=== PATIENT | female | born 1955 | race Caucasian/White ===

== ENCOUNTER 2020-03-09 14:19 | Inpatient (IN) | payer BC ==
[2020-03-09] MEDS ORDERED: methylPREDNISolone SOD SUCCI 125 MG/2 ML VIAL IV STA (14:49)
[2020-03-09] MEDS ORDERED: IPRATROPIUM 0.5 MG/2.5 ML NEBU INHALATION STA (14:49)
[2020-03-09] MEDS ORDERED: ALBUTEROL NEBULIZED 2.5 MG/3 ML INHALATION STA (14:49)
--- NOTE | 2020-03-09 15:08 | ED ---
General Adult HPI - General Chief complaint: Shortness of Breath Stated complaint: MICHAEL Time Seen by Provider: 03/09/20 14:30 Source: patient, RN notes reviewed, old records reviewed Mode of arrival: EMS Limitations: no limitations - History of Present Illness Initial comments: This is a 65-year-old female who presents emergency department with past medical history significant for COPD. Patient states she continues to smoke. Patient states the last week she isn't shortness of breath is getting progressively worse per patient states the last time she had this shortness of breath she had been admitted to the hospital. Patient denies any fevers or chills. Patient states she does have a cough but no sputum production. Patient denies any chest pain or palpitations. Patient denies lightheadedness or dizziness. Patient denies any headache patient denies numbness weakness. Patient denies any abdominal pain patient denies nausea vomiting diarrhea. - Related Data Allergies Allergy/AdvReac Type Severity Reaction Status Date / Time lamotrigine [From Lamictal] Allergy Unknown Verified 03/09/20 14:30 sulfamethoxazole Allergy Unknown Verified 03/09/20 14:30 [From Bactrim] trimethoprim [From Bactrim] Allergy Unknown Verified 03/09/20 14:30 Review of Systems ROS Statement: Those systems with pertinent positive or pertinent negative responses have been documented in the HPI. ROS Other: All systems not noted in ROS Statement are negative. Past Medical History Past Medical History: COPD, Hypertension History of Any Multi-Drug Resistant Organisms: None Reported Past Surgical History: Back Surgery, Orthopedic Surgery Past Psychological History: Depression Smoking Status: Current every day smoker Past Alcohol Use History: None Reported Past Drug Use History: None Reported General Exam - General Exam Comments Initial Comments: GENERAL: Patient is well-developed and well-nourished. Patient is nontoxic and well- hydrated and is in mild distress. ENT: Neck is soft and supple. No significant lymphadenopathy is noted. Oropharynx is clear. Moist mucous membranes. Neck has full range of motion without eliciting any pain. EYES: The sclera were anicteric and conjunctiva were pink and moist. Extraocular movements were intact and pupils were equal round and reactive to light. Eyelids were unremarkable. PULMONARY: Patient has poor air exchange with expiratory wheezing. CARDIOVASCULAR: There is a regular rate and rhythm without any murmurs gallops or rubs. ABDOMEN: Soft and nontender with normal bowel sounds. SKIN: Skin is clear with no lesions or rashes and otherwise unremarkable. NEUROLOGIC: Patient is alert and oriented x3. Cranial nerves II through XII are grossly intact. Motor and sensory are also intact. Normal speech, volume and content. Symmetrical smile. MUSCULOSKELETAL: Normal extremities with adequate strength and full range of motion. LYMPHATICS: No significant lymphadenopathy is noted PSYCHIATRIC: Normal psychiatric evaluation. Limitations: no limitations Course Vital Signs 03/09/20 03/09/20 03/09/20 14:31 15:29 15:47 Temperature 98.7 F Pulse Rate 102 H 102 H 100 Respiratory 20 Rate Blood Pressure 140/79 O2 Sat by Pulse 94 L Oximetry 03/09/20 03/09/20 03/09/20 16:17 16:30 16:35 Temperature Pulse Rate 109 H Respiratory 18 Rate Blood Pressure 111/74 O2 Sat by Pulse 93 L 88 L 93 L Oximetry Medical Decision Making - Medical Decision Making EKG shows normal sinus rhythm at 90 bpm ID interval 228 QRS 76 QT interval 374 QTC is 477. Patient's EKG shows no ST segment elevation or depression. Patient should multiple breathing treatments in the emergency department as well as steroids. Chest x-ray shows no acute abnormality. I taken reevaluate the patient after the breathing treatment she continued to be moving poor air flow. She stated she felt a little better. Patient was taken from the bed and went on a little walk however she became very short of breath he sat it down to 88% and felt dizzy. I spoke with Dr. Schroeder he agreed to admit the patient admitted the patient I wrote admitting orders I continued albuterol and steroids on the floor. - Lab Data Result diagrams: 03/09/20 15:24 03/09/20 15:24 Lab Results 03/09/20 03/09/20 03/09/20 Range/Units 15:24 15:24 15:24 WBC 6.2 (3.8-10.6) k/uL RBC 3.60 L (3.80-5.40) m/uL Hgb 10.6 L (11.4-16.0) gm/dL Hct 31.7 L (34.0-46.0) % MCV 87.9 (80.0-100.0) fL MCH 29.4 (25.0-35.0) pg MCHC 33.4 (31.0-37.0) g/dL RDW 14.9 (11.5-15.5) % Plt Count 272 (150-450) k/uL MPV 8.3 Neutrophils % 61 % Lymphocytes % 24 % Monocytes % 11 % Eosinophils % 1 % Basophils % 1 % Neutrophils # 3.8 (1.3-7.7) k/uL Lymphocytes # 1.5 (1.0-4.8) k/uL Monocytes # 0.7 (0-1.0) k/uL Eosinophils # 0.0 (0-0.7) k/uL Basophils # 0.1 (0-0.2) k/uL Hypochromasia Slight Poikilocytosis Slight PT 10.5 (9.0-12.0) sec INR 1.0 (<1.2) APTT 22.8 (22.0-30.0) sec Sodium 140 (137-145) mmol/L Potassium 3.4 L (3.5-5.1) mmol/L Chloride 104 (98-107) mmol/L Carbon Dioxide 33 H (22-30) mmol/L Anion Gap 3 mmol/L BUN 15 (7-17) mg/dL Creatinine 0.64 (0.52-1.04) mg/dL Est GFR (CKD-EPI)AfAm >90 (>60 ml/min/1.73 sqM) Est GFR (CKD-EPI)NonAf >90 (>60 ml/min/1.73 sqM) Glucose 103 H (74-99) mg/dL Plasma Lactic Acid Kaleb (0.7-2.0) mmol/L Calcium 8.5 (8.4-10.2) mg/dL Magnesium 1.5 L (1.6-2.3) mg/dL Total Bilirubin 0.4 (0.2-1.3) mg/dL AST 23 (14-36) U/L ALT 14 (4-34) U/L Alkaline Phosphatase 72 (38-126) U/L Troponin I (0.000-0.034) ng/mL Total Protein 6.1 L (6.3-8.2) g/dL Albumin 3.3 L (3.5-5.0) g/dL 03/09/20 03/09/20 Range/Units 15:24 15:24 WBC (3.8-10.6) k/uL RBC (3.80-5.40) m/uL Hgb (11.4-16.0) gm/dL Hct (34.0-46.0) % MCV (80.0-100.0) fL MCH (25.0-35.0) pg MCHC (31.0-37.0) g/dL RDW (11.5-15.5) % Plt Count (150-450) k/uL MPV Neutrophils % % Lymphocytes % % Monocytes % % Eosinophils % % Basophils % % Neutrophils # (1.3-7.7) k/uL Lymphocytes # (1.0-4.8) k/uL Monocytes # (0-1.0) k/uL Eosinophils # (0-0.7) k/uL Basophils # (0-0.2) k/uL Hypochromasia Poikilocytosis PT (9.0-12.0) sec INR (<1.2) APTT (22.0-30.0) sec Sodium (137-145) mmol/L Potassium (3.5-5.1) mmol/L Chloride (98-107) mmol/L Carbon Dioxide (22-30) mmol/L Anion Gap mmol/L BUN (7-17) mg/dL Creatinine (0.52-1.04) mg/dL Est GFR (CKD-EPI)AfAm (>60 ml/min/1.73 sqM) Est GFR (CKD-EPI)NonAf (>60 ml/min/1.73 sqM) Glucose (74-99) mg/dL Plasma Lactic Acid Kaleb 1.0 (0.7-2.0) mmol/L Calcium (8.4-10.2) mg/dL Magnesium (1.6-2.3) mg/dL Total Bilirubin (0.2-1.3) mg/dL AST (14-36) U/L ALT (4-34) U/L Alkaline Phosphatase (38-126) U/L Troponin I <0.012 (0.000-0.034) ng/mL Total Protein (6.3-8.2) g/dL Albumin (3.5-5.0) g/dL Critical Care Time Critical Care Time: Yes Total Critical Care Time: 35 Disposition Clinical Impression: Acute exacerbation of chronic obstructive pulmonary disease Disposition: ADMITTED IP TO THIS HOSP Referrals: None,Stated [Primary Care Provider] - 1-2 days Time of Disposition: 17:03
[2020-03-09 15:36] LABS: Basophils # (A) 0.1 k/uL (0-0.2); Basophils % (A) 1 %; Eosinophils % (A) 1 %; HCT 31.7 % (34.0-46.0); HGB 10.6 gm/dL (11.4-16.0); Hypochromasia Slight; Lymphocytes # (A) 1.5 k/uL (1.0-4.8); Lymphocytes % (A) 24 %; MCH 29.4 pg (25.0-35.0); MCHC 33.4 g/dL (31.0-37.0); MCV 87.9 fL (80.0-100.0); Mean Platelet Volume 8.3; Monocytes # (A) 0.7 k/uL (0-1.0); Monocytes % (A) 11 %; Neutrophils # (A) 3.8 k/uL (1.3-7.7); Neutrophils % (A) 61 %; Platelet Count 272 k/uL (150-450); Poikilocytosis Slight; RDW 14.9 % (11.5-15.5); WBC 6.2 k/uL (3.8-10.6)
[2020-03-09 15:45] LABS: Partial Thromboplastin Time 22.8 sec (22.0-30.0); Prothrombin Time 10.5 sec (9.0-12.0)
[2020-03-09 15:50] LABS: ALT 14 U/L (4-34); AST 23 U/L (14-36); African American GFR (CKD) >90 (>60 ml/min/1.73 sqM); Albumin 3.3 g/dL (3.5-5.0); Alkaline Phosphatase 72 U/L (38-126); Anion Gap 3 mmol/L; Blood Urea Nitrogen 15 mg/dL (7-17); Calcium 8.5 mg/dL (8.4-10.2); Carbon Dioxide 33 mmol/L (22-30); Chloride 104 mmol/L (98-107); Glucose 103 mg/dL (74-99); Magnesium 1.5 mg/dL (1.6-2.3); Non-African American GFR(CKD) >90 (>60 ml/min/1.73 sqM); Potassium 3.4 mmol/L (3.5-5.1); Sodium 140 mmol/L (137-145); Total Bilirubin 0.4 mg/dL (0.2-1.3); Total Protein 6.1 g/dL (6.3-8.2)
[2020-03-09] MEDS ORDERED: KETOROLAC 15 MG/ML 1 ML VIAL IVP STA (15:56)
--- NOTE | 2020-03-09 16:02 | XR ---
EXAMINATION TYPE: XR chest 2V DATE OF EXAM: 03/09/2020 COMPARISON: NONE HISTORY: Chest pain, shortness of breath, and cough. TECHNIQUE: Frontal and lateral views of the chest are obtained. FINDINGS: Background Chronic emphysematous and suspected pulmonary fibrotic changes. There is no antonio picious focal air space opacity, pleural effusion, or pneumothorax seen. The cardiac silhouette size is within normal limits. Anterior fusion plate and a cervical thoracic junction is present. Linear 2 .0 cm density posterior to the heart is confirmed on 2 views. IMPRESSION: Chronic changes without acute pulmonary process. Possible 2.0 cm ingested metallic forei gn body in the distal esophagus, correlate clinically.
[2020-03-09] MEDS ORDERED: IPRATROPIUM-ALBUTEROL 3 ML NEB INHALATION PRN (17:04)
[2020-03-09] MEDS ORDERED: NALOXONE 0.4 MG/ML 1 ML VIAL IV PRN (17:24)
[2020-03-09] MEDS ORDERED: POTASSIUM CHLORIDE ER 20 MEQ TAB.ER PO STA (17:26)
--- NOTE | 2020-03-09 17:36 | P.HPIM ---
History of Present Illness H&P Date: 03/09/20 Chief Complaint: sob 65-year-old female who presents to the emergency department with worsening shortness of breath, cough as well as pleuritic chest pain and upper back pain. Cough is productive of brownish phlegm. No hemoptysis. Patient has history of COPD and she continues to smoke. No palpitations. No fevers or chills. No sick contacts. Patient also denies lightheadedness or dizziness. Patient denies any headache patient denies numbness weakness. Patient denies any abdominal pain, nausea vomiting diarrhea. In the emergency department evaluation revealed tachycardia with heart rate of 110, respiratory rate 30, oxygen saturation 88% on room air. Blood pressure was okay. She wasn't febrile. Labs revealed slight hypokalemia and hypomagnesemia otherwise unremarkable. EKG showed normal sinus rhythm. Chest x-ray showed no acute lung disease, 2 cm metallic foreign-body in the lower esophagus. Review of Systems Complete review of system performed, pertinent positives per HPI, otherwise negative Past Medical History Past Medical History: COPD, Hypertension History of Any Multi-Drug Resistant Organisms: None Reported Past Surgical History: Back Surgery, Orthopedic Surgery Past Psychological History: Depression Smoking Status: Current every day smoker Past Alcohol Use History: None Reported Past Drug Use History: None Reported Medications and Allergies Allergies Allergy/AdvReac Type Severity Reaction Status Date / Time lamotrigine [From Lamictal] Allergy Unknown Verified 03/09/20 14:30 sulfamethoxazole Allergy Unknown Verified 03/09/20 14:30 [From Bactrim] trimethoprim [From Bactrim] Allergy Unknown Verified 03/09/20 14:30 Physical Exam Vitals: Vital Signs Temp Pulse Resp BP Pulse Ox 03/09/20 16:35 93 L 03/09/20 16:30 88 L 03/09/20 16:17 109 H 18 111/74 93 L 03/09/20 15:47 100 03/09/20 15:29 102 H 03/09/20 14:31 98.7 F 102 H 20 140/79 94 L Intake and Output 03/09/20 03/09/20 03/09/20 06:59 14:59 22:59 Other: Weight 63.503 kg Constitutional: Mild to moderate respiratory distress, mild accessory muscle use. Eyes:Anicteric sclerae, moist conjunctiva, no lid-lag, PERRLA, ENMT: Oropharynx clear, no erythema, exudates Neck: Supple, FROM, no masses, or JVD, No carotid bruits, No thyromegaly Lungs: Bilateral diffuse wheezing and rhonchi, diminished breath sounds bilaterally. Cardiovascular: Tachycardic, regular, normal S1 and S2. No murmurs, gallops, or rubs, No peripheral edema Abdominal: Soft, Nontender, no guarding, rebound or rigidity, Normoactive bowel sounds, No hepatomegaly, No splenomegaly, No palpable mass Skin: Normal temperature, tone, texture, turgor, no induration, No subcutaneous nodules, No rash, lesions, No ulcers Extremities: No digital cyanosis, No clubbing, Pedal pulses intact and symmetrical, Radial pulses intact and symmetrical, No calf tenderness Psychiatric: Alert and oriented to person, place and time, appropriate affect, intact judgement Neuro: Muscles Strength 5/5 in all 4 extremities, Sensation to light touch grossly present throughout, Cranial nerves II-XII grossly intact, no focal sensory deficits Results CBC & Chem 7: 03/09/20 15:24 03/09/20 15:24 Labs: Abnormal Lab Results - Last 24 Hours (Table) 03/09/20 03/09/20 Range/Units 15:24 15:24 RBC 3.60 L (3.80-5.40) m/uL Hgb 10.6 L (11.4-16.0) gm/dL Hct 31.7 L (34.0-46.0) % Potassium 3.4 L (3.5-5.1) mmol/L Carbon Dioxide 33 H (22-30) mmol/L Glucose 103 H (74-99) mg/dL Magnesium 1.5 L (1.6-2.3) mg/dL Total Protein 6.1 L (6.3-8.2) g/dL Albumin 3.3 L (3.5-5.0) g/dL Assessment and Plan Plan: Acute hypoxic respiratory failure/acute exacerbation of COPD O2 to keep sats above 92% IV steroids DuoNeb's Doxycycline Check pro calcitonin Lower esophageal foreign body found on CXR Consult GI Pleuritic chest pain [place] when necessary Hypokalemia and hypomagnesemia Replace, follow in a.m. Smoking Advised to quit Nicotine patch as needed Patient admitted to inpatient due to severity of her illness, anticipated length of stay more than 2 midnights.
[2020-03-09] MEDS: HYDROcodone/APAP 5-325MG 1 EACH TAB PO PRN ×2 (17:52→22:40)
[2020-03-09] MEDS: MAGNESIUM SULFATE-D5W PMX 1 GM in DEXTROSE/WATER 1 100ML.BAG IVPB SCH ×2 (17:53→21:34)
[2020-03-09] MEDS ORDERED: IPRATROPIUM-ALBUTEROL 3 ML NEB INHALATION SCH (20:00)
[2020-03-09] MEDS: methylPREDNISolone SOD SUCCI 125 MG/2 ML VIAL IV SCH (21:32)
[2020-03-09] MEDS: DOXYCYCLINE 100 MG CAP PO SCH (21:34)
[2020-03-10] MEDS: methylPREDNISolone SOD SUCCI 125 MG/2 ML VIAL IV SCH ×5 (01:52→23:31)
[2020-03-10 06:24] LABS: Basophils % (A) 0 %; Eosinophils % (A) 0 %; HCT 32.4 % (34.0-46.0); HGB 10.2 gm/dL (11.4-16.0); Hypochromasia Marked; Lymphocytes # (A) 0.7 k/uL (1.0-4.8); Lymphocytes % (A) 15 %; MCH 28.8 pg (25.0-35.0); MCHC 31.4 g/dL (31.0-37.0); MCV 91.8 fL (80.0-100.0); Mean Platelet Volume 8.8; Monocytes # (A) 0.2 k/uL (0-1.0); Monocytes % (A) 3 %; Neutrophils # (A) 3.9 k/uL (1.3-7.7); Neutrophils % (A) 80 %; Platelet Count 283 k/uL (150-450); Poikilocytosis Slight; RBC 3.53 m/uL (3.80-5.40); RDW 15.1 % (11.5-15.5); WBC 4.9 k/uL (3.8-10.6)
[2020-03-10] MEDS: HYDROcodone/APAP 5-325MG 1 EACH TAB PO PRN ×5 (07:33→23:29)
[2020-03-10] MEDS: DOXYCYCLINE 100 MG CAP PO SCH (07:35)
--- NOTE | 2020-03-10 08:47 | P.PN ---
Subjective Progress Note Date: 03/10/20 Principal diagnosis: sob Patient feeling only slightly better compared to when she came in. She continues to have pleuritic chest pain, shortness of breath and cough. No fevers and chills. Objective - Vital Signs Vital signs: Vital Signs Temp 97.8 F 03/10/20 08:00 Pulse 95 03/10/20 08:00 Resp 18 03/10/20 08:00 BP 147/67 03/10/20 08:00 Pulse Ox 90 L 03/10/20 08:00 Intake & Output 03/09/20 03/10/20 03/10/20 18:59 06:59 18:59 Weight 63.503 kg Other: # Bowel Movements 1 - Exam Constitutional: Mild to moderate respiratory distress, mild accessory muscle use. Eyes:Anicteric sclerae, moist conjunctiva, no lid-lag, PERRLA, ENMT: Oropharynx clear, no erythema, exudates Neck: Supple, FROM, no masses, or JVD, No carotid bruits, No thyromegaly Lungs: Bilateral diffuse wheezing and rhonchi, diminished breath sounds bilaterally. Cardiovascular: Tachycardic, regular, normal S1 and S2. No murmurs, gallops, or rubs, No peripheral edema Abdominal: Soft, Nontender, no guarding, rebound or rigidity, Normoactive bowel sounds, No hepatomegaly, No splenomegaly, No palpable mass Skin: Normal temperature, tone, texture, turgor, no induration, No subcutaneous nodules, No rash, lesions, No ulcers Extremities: No digital cyanosis, No clubbing, Pedal pulses intact and symmetrical, Radial pulses intact and symmetrical, No calf tenderness Psychiatric: Alert and oriented to person, place and time, appropriate affect, intact judgement Neuro: Muscles Strength 5/5 in all 4 extremities, Sensation to light touch grossly present throughout, Cranial nerves II-XII grossly intact, no focal sensory deficits - Labs CBC & Chem 7: 03/10/20 05:45 03/09/20 15:24 Labs: Abnormal Lab Results - Last 24 Hours (Table) 03/09/20 03/09/20 03/09/20 Range/Units 15:24 15:24 23:22 RBC 3.60 L (3.80-5.40) m/uL Hgb 10.6 L (11.4-16.0) gm/dL Hct 31.7 L (34.0-46.0) % Lymphocytes # (1.0-4.8) k/uL Potassium 3.4 L (3.5-5.1) mmol/L Carbon Dioxide 33 H (22-30) mmol/L Glucose 103 H (74-99) mg/dL Magnesium 1.5 L (1.6-2.3) mg/dL Total Protein 6.1 L (6.3-8.2) g/dL Albumin 3.3 L (3.5-5.0) g/dL Coronavirus (PCR) Detected A (Not Detectd) 03/10/20 Range/Units 05:45 RBC 3.53 L (3.80-5.40) m/uL Hgb 10.2 L (11.4-16.0) gm/dL Hct 32.4 L (34.0-46.0) % Lymphocytes # 0.7 L (1.0-4.8) k/uL Potassium (3.5-5.1) mmol/L Carbon Dioxide (22-30) mmol/L Glucose (74-99) mg/dL Magnesium (1.6-2.3) mg/dL Total Protein (6.3-8.2) g/dL Albumin (3.5-5.0) g/dL Coronavirus (PCR) (Not Detectd) Assessment and Plan Plan: Acute hypoxic respiratory failure/acute exacerbation of COPD/acute covid 19 pneumonia O2 to keep sats above 92% IV steroids DuoNeb's Consult pulmonary service Pro calcitonin negative, discontinue doxycycline Lower esophageal foreign body found on CXR Consult GI Pleuritic chest pain [place] when necessary Hypokalemia and hypomagnesemia Replaced Smoking Advised to quit Nicotine patch as needed Disposition: Likely home Anticipated discharge: 3-4 days
[2020-03-10] MEDS: ALBUTEROL HFA INHALER INHALATION SCH ×4 (08:57→19:41)
[2020-03-10] MEDS: TIOTROPIUM 2.5 MCG INHALER INHALATION SCH (08:58)
[2020-03-10 10:39] LABS: African American GFR (CKD) 111.6 (60.0-200.0); Albumin 3.9 g/dL (3.80-4.90); Albumin/Globulin Ratio 1.95 (1.60-3.17); Anion Gap 10.8 mmol/L (4.00-12.00); BUN/Creat Ratio 38.33 Ratio (12.00-20.00); Calcium 8.5 mg/dL (8.7-10.3); Carbon Dioxide 24.2 mmol/L (21.6-31.8); Magnesium 2.2 mg/dL (1.5-2.4); Non-African American GFR(CKD) 96.3 (60.0-200.0); Potassium 4.4 mmol/L (3.5-5.5); Total Bilirubin 0.3 mg/dL (0.3-1.2); Total Protein 5.9 g/dL (6.2-8.2)
--- NOTE | 2020-03-10 17:13 | P.CNPUL ---
History of Present Illness Consult date: 03/10/20 Requesting physician: Suman Gary Reason for consult: dyspnea, cough Chief complaint: Cough, weakness, shortness of breath, hypoxia, generalized malaise History of present illness: This 65-year-old white female patient with past medical history of COPD, current smoker, patient states she quit smoking 2 days ago, hypertension, depression, history of previous back surgery, who presents to the emergency department for evaluation of worsening dyspnea, fatigue, and cough, she states she has been having symptoms for one week, started with generalized malaise, fatigue, cough, she did have diarrhea, some resting production. She recently quit smoking about 2 days ago. She does not see lung doctor on a regular basis, she is only on albuterol for her COPD. she states she feels short of breath, still coughing, chest x-ray in the emergency room showed chronic changes without acute pulmonary process, possible 2.0 cm ingested metallic foreign body in the distal esophagus. She states she had a history of esophageal tear with the history of surgical intervention and placement of a clip and this was done at [facility] a while back. No history of EtOH. Lab data was reviewed joann wing white blood cell, 6.2, hemoglobin of 10.6, INR is 1.0, potassium 3.4, CO2 is 23, Darvocet electrolytes were within normal limits, BUN of 15 creatinine 0.64, lactic acid was 1, troponin was less than 0.012, pro calcitonin was negative at 0.03, coronavirus PCR was positive. Patient is afebrile, she is currently on 2 L of oxygen and pulse ox is between 90-93%, blood pressure stable, she is noted to be mildly short of breath with conversation, she feels warm to touch on physical examination, however no recorded elevated temperature. Review of Systems All systems: negative Constitutional: Reports malaise, Reports weakness, Denies chills, Denies fever Eyes: denies blurred vision, denies pain Ears, nose, mouth and throat: Denies headache, Denies sore throat Cardiovascular: Denies chest pain, Denies shortness of breath Respiratory: Reports cough with sputum, Reports dyspnea, Denies cough Gastrointestinal: Denies abdominal pain, Denies diarrhea, Denies nausea, Denies vomiting Genitourinary: Denies dysuria, Denies hematuria Musculoskeletal: Denies myalgias Integumentary: Denies pruritus, Denies rash Neurological: Denies numbness, Denies weakness Psychiatric: Denies anxiety, Denies depression Endocrine: Denies fatigue, Denies weight change Past Medical History Past Medical History: COPD, Hypertension History of Any Multi-Drug Resistant Organisms: None Reported Past Surgical History: Back Surgery, Orthopedic Surgery Past Anesthesia/Blood Transfusion Reactions: No Reported Reaction Additional Past Anesthesia/Blood Transfusion Reaction / Comment(s): Pt has never had a transfusion Past Psychological History: Depression Smoking Status: Former smoker Past Alcohol Use History: None Reported Past Drug Use History: None Reported - Past Family History Father Family Medical History: No Reported History Medications and Allergies Home Medications Medication Instructions Recorded Confirmed Type Albuterol Sulfate [Proair Hfa] 1 - 2 puff INHALATION RT-Q4H PRN 03/09/20 03/09/20 History Celexa (Unknown Strength) 1 tab PO DAILY 03/09/20 03/09/20 History Metoprolol Tartrate [Lopressor] 50 mg PO BID 03/09/20 03/09/20 History Allergies Allergy/AdvReac Type Severity Reaction Status Date / Time lamotrigine [From Lamictal] Allergy Unknown Verified 03/09/20 17:39 sulfamethoxazole Allergy Unknown Verified 03/09/20 17:39 [From Bactrim] trimethoprim [From Bactrim] Allergy Unknown Verified 03/09/20 17:39 Physical Exam Vitals: Vital Signs Temp Pulse Pulse Resp BP BP Pulse Ox 03/10/20 16:06 97.7 F 98 134/64 93 L 03/10/20 14:08 98.4 F 102 H 18 138/74 91 L 03/10/20 08:00 97.8 F 95 18 147/67 90 L 03/10/20 07:44 16 03/10/20 06:34 92 16 142/83 98 03/10/20 03:22 18 94 L 03/10/20 01:07 116 H 18 188/92 94 L 03/09/20 22:40 107 H 18 127/71 94 L 03/09/20 20:00 97.9 F 104 H 18 134/68 97 03/09/20 19:33 104 H 03/09/20 19:25 104 H 03/09/20 17:50 99 20 120/72 99 Intake and Output 03/10/20 03/10/20 03/10/20 06:59 14:59 22:59 Other: # Bowel Movements 1 GENERAL EXAM: Alert, very pleasant, 65-year-old white female, 2 L of oxygen and the pulse ox 93%, appears to be mild short of breath with conversation but no acute distress noted comfortable in no apparent distress. HEAD: Normocephalic/atraumatic. EYES: Normal reaction of pupils, equal size. Conjunctiva pink, sclera white. NOSE: Clear with pink turbinates. THROAT: No erythema or exudates. NECK: No masses, no JVD, no thyroid enlargement, no adenopathy. CHEST: No chest wall deformity. Symmetrical expansion. LUNGS: Equal air entry with minimal basilar crackles CVS: Regular rate and rhythm, normal S1 and S2, no gallops, no murmurs, no rubs ABDOMEN: Soft, nontender. No hepatosplenomegaly, normal bowel sounds, no guarding or rigidity. EXTREMITIES: No clubbing, no edema, no cyanosis, 2+ pulses and upper and lower extremities. MUSCULOSKELETAL: Muscle strength and tone normal. SPINE: No scoliosis or deformity SKIN: No rashes CENTRAL NERVOUS SYSTEM: Alert and oriented -3. No focal deficits, tone is normal in all 4 extremities. PSYCHIATRIC: Alert and oriented -3. Appropriate affect. Intact judgment and insight. Results - Laboratory Findings CBC and BMP: 03/10/20 05:45 03/10/20 05:45 PT/INR, D-dimer PT 10.5 sec (9.0-12.0) 03/09/20 15:24 INR 1.0 (<1.2) 03/09/20 15:24 Abnormal lab findings: Abnormal Labs 03/09/20 03/09/20 03/09/20 15:24 15:24 23:22 RBC 3.60 L Hgb 10.6 L Hct 31.7 L Lymphocytes # Potassium 3.4 L Carbon Dioxide 33 H BUN/Creatinine Ratio Glucose 103 H Calcium Magnesium 1.5 L Total Protein 6.1 L Albumin 3.3 L Coronavirus (PCR) Detected A 03/10/20 03/10/20 05:45 05:45 RBC 3.53 L Hgb 10.2 L Hct 32.4 L Lymphocytes # 0.7 L Potassium Carbon Dioxide BUN/Creatinine Ratio 38.33 H Glucose 135 H Calcium 8.5 L Magnesium Total Protein 5.9 L Albumin Coronavirus (PCR) - Diagnostic Findings Chest x-ray: report reviewed, image reviewed Assessment and Plan Plan: Assessment: #1. Acute hypoxic respiratory failure related to acute COVID 19 infection. Chest x-ray showed a chronic emphysematous and suspected pulmonary fibrotic changes without acute pulmonary process, CTA chest is pending, her onset of symptoms was one week ago, with worsening cough, dyspnea, fatigue, generalized malaise, chest discomfort which is likely pleuritic and diarrhea #2. History of COPD not oxygen dependent at baseline #3. 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 Mild hypokalemia and hypomagnesemia #5. Hypertension #6. Lower esophageal foreign body seen on the chest x-ray on 2 different views, and the patient reports history of esophageal tear with placement of a clip at [facility] a while ago #7. Chronic back pain with history of surgery #8. Depression Plan: We'll start the patient on Remdesivir, we'll give 2 units of convalescent plasma, continue IV steroids, obtain CTA chest to investigate the lower esophageal foreign body, and also evaluate her pulmonary infiltrates and chronic changes in the lungs, continue steroids, continue vitamins, prophylactic dose of Lovenox, obtain a stat d-dimer, will continue to follow and make further recomm endations I performed a history & physical examination of the patient and discussed their management with my nurse practitioner, Silke Márquez. I reviewed the nurse practitioner's note and agree with the documented findings and plan of care. Lung sounds are positive for basilar crackles. The findings and the impression was discussed with the patient. I attest to the documentation by the nurse practitioner. Time with Patient: Greater than 30
--- NOTE | 2020-03-10 17:34 | CONS ---
CONSULTATION DATE OF DICTATION: 03/10/2020. REASON FOR CONSULTATION: Foreign body in the esophagus noted on chest x-ray. HISTORY OF PRESENT ILLNESS: The patient is a 65-year-old pleasant white female who came to the emergency room complaining of shortness of breath associated with cough and some pleuritic chest pain radiating to the upper back for the last 3-4 days' duration. She came to the emergency room and was tested positive for COVID-19 infection and presently being admitted to the hospital. She did have a chest x-ray done that showed a 2 cm metallic foreign body noted in the distal esophagus. On further questioning, patient states that she was admitted to [facility] about a month ago with hematemesis. She had an upper endoscopy done. She was told she had bleeding in the distal esophagus and underwent cautery. She believes she also had an Endoclip placed. Since then the patient has been doing fine. She did not have any further episodes of bleeding. However, she does complain of some discomfort in the lower sternal area and occasional dysphagia. She denies any melena. PAST MEDICAL HISTORY: Her past medical history is significant for hypertension, asthma, anxiety, depression. PAST SURGICAL HISTORY: Recent EGD one month ago, back surgery, and some kind of orthopedic surgery. SOCIAL HISTORY: Chronic smoker but no alcohol use. FAMILY HISTORY: Unremarkable. ALLERGIES: LAMICTAL, BACTRIM. MEDICATIONS AT HOME: Medications at home include Celexa, Lopressor and albuterol. REVIEW OF SYSTEMS: CARDIOPULMONARY: Some shortness of breath. Chest pain has resolved. NEUROLOGY: Unremarkable. PSYCHIATRY: Unremarkable. ENT/VISION: Unremarkable. CONSTITUTIONAL: No recent weight loss. No fever, chills, night sweats. HEMATOLOGY: Unremarkable. ENDOCRINE: Unremarkable. GI: As mentioned above. PHYSICAL EXAMINATION: She appears comfortable. No apparent distress. Vital signs are stable. Blood pressure is 142/83, pulse rate 92, temperature . HEENT examination unremarkable. Conjunctivae pink. Sclerae anicteric. Oral cavity no lesions. NECK: No JVD or lymph node enlargement. CHEST: Clear to auscultation. HEART: Regular rate and rhythm. ABDOMEN: Soft. Bowel sounds are positive. No organomegaly. EXTREMITIES: No pedal edema. NEUROLOGIC: Alert and oriented x3. No focal deficits. LABS/IMAGING: WBC 6.2, hemoglobin 10.6, platelets normal. Basic metabolic panel is within normal limits. AST, ALT, T-bilirubin, alkaline phosphatase are normal. Coronavirus PCR is positive. Chest x-ray showed chronic changes without any acute pulmonary process and a 2 cm metallic foreign body in the distal esophagus. IMPRESSION: 1. COVID-19 infection/COVID-19 pneumonia with exacerbation of chronic obstructive pulmonary disease, presently on IV steroids. 2. Esophageal foreign body noted on chest x-ray, most likely related to recent endoscopic intervention for upper GI bleed at [facility], for which she underwent cautery with Endoclip done. Procedure note is not available at the time of this dictation. 3. History of chronic obstructive pulmonary disease. RECOMMENDATIONS: 1. Obtain record of recent upper endoscopy done at [facility]. 2. No indication for EGD at the present time. 3. Continue with management of COVID-19 pneumonia. 4. Will follow with you closely. Thank you for this consultation. MMODL / IJN: [id number] /
[2020-03-10] MEDS ORDERED: REMDESIVIR 200 MG in SODIUM CHLORIDE 0.9% 250 ML IVPB ONE (18:00)
[2020-03-10] MEDS: ZINC SULFATE 220 MG CAP PO SCH (18:57)
[2020-03-10] MEDS: ENOXAPARIN 40 MG/0.4 ML SYRINGE SQ SCH (18:57)
--- NOTE | 2020-03-10 19:12 | CT ---
EXAMINATION TYPE: CT chest angio for PE DATE OF EXAM: 03/10/2020 COMPARISON: None HISTORY: SOB, +covid CT DLP: 251.1 mGycm Automated exposure control for dose reduction was used. CONTRAST: Performed with IV Contrast, patient injected with 65cc mL of Isovue 370. Images obtained from the thoracic inlet to the diaphragm with IV contrast and 3-D post processed imag es. There is minimal pulmonary emphysema. There is some mild peripheral patchy subpleural interstitial in filtrates. There is minimal subsegmental atelectasis at the lung bases. There is no pleural effusion. Heart size is normal. There is no pericardial effusion. There is mild hiatal hernia. There are no hilar masses. There is no mediastinal adenopathy. Thoracic aorta is atheromatous. There is no aneurysm or dissection. There is normal contrast opacification of the pulmonary arteries. There are no filling defects. There is some spurring in the thoracic spine. I see no bony destructive process. IMPRESSION: No evidence of pulmonary embolism. Mild peripheral patchy pulmonary interstitial infiltrates. No susp icious pulmonary mass. Mild atelectasis at the lung bases.
[2020-03-10] MEDS: CHOLECALCIFEROL 400 UNIT TAB PO SCH (20:30)
[2020-03-10] MEDS: ASCORBIC ACID 500 MG TAB PO SCH (20:30)
[2020-03-11] MEDS: HYDROcodone/APAP 5-325MG 1 EACH TAB PO PRN ×5 (02:52→19:40)
[2020-03-11] MEDS: methylPREDNISolone SOD SUCCI 125 MG/2 ML VIAL IV SCH ×3 (05:51→18:45)
[2020-03-11] MEDS: CHOLECALCIFEROL 400 UNIT TAB PO SCH (08:54)
[2020-03-11] MEDS: ENOXAPARIN 40 MG/0.4 ML SYRINGE SQ SCH (08:54)
[2020-03-11] MEDS: ZINC SULFATE 220 MG CAP PO SCH (08:54)
[2020-03-11] MEDS: ASCORBIC ACID 500 MG TAB PO SCH ×2 (08:54→19:41)
[2020-03-11] MEDS: TIOTROPIUM 2.5 MCG INHALER INHALATION SCH (09:01)
[2020-03-11] MEDS: ALBUTEROL HFA INHALER INHALATION SCH ×4 (09:01→19:21)
--- NOTE | 2020-03-11 10:55 | P.PN ---
Subjective Progress Note Date: 03/11/20 Principal diagnosis: sob Patient reported feeling the same today despite looking much better to me this morning. Still having cough and shortness of breath. No fevers. Objective - Vital Signs Vital signs: Vital Signs Temp 97.4 F L 03/11/20 04:53 Pulse 89 03/11/20 04:53 Resp 18 03/11/20 04:53 BP 147/84 03/11/20 04:53 Pulse Ox 100 03/11/20 04:53 Intake & Output 03/10/20 03/11/20 03/11/20 18:59 06:59 18:59 Intake Total 1149 Balance 1149 Intake: Intake, IV Titration 250 Amount Remdesivir 200 mg In 250 Sodium Chloride 0.9% 250 ml @ 250 mls/hr IVPB ONCE ONE Rx#:[id number] Oral 500 Blood Product 399 Ffp Pher Conval Covid19 199 Acda 3 Unit [id number] Other: # Voids 2 # Bowel Movements 1 0 - Exam Constitutional: Mild to moderate respiratory distress, mild accessory muscle use. Eyes:Anicteric sclerae, moist conjunctiva, no lid-lag, PERRLA, ENMT: Oropharynx clear, no erythema, exudates Neck: Supple, FROM, no masses, or JVD, No carotid bruits, No thyromegaly Lungs: Improving air exchange and less wheezing compared to prior exam. Cardiovascular: Tachycardic, regular, normal S1 and S2. No murmurs, gallops, or rubs, No peripheral edema Abdominal: Soft, Nontender, no guarding, rebound or rigidity, Normoactive bowel sounds, No hepatomegaly, No splenomegaly, No palpable mass Skin: Normal temperature, tone, texture, turgor, no induration, No subcutaneous nodules, No rash, lesions, No ulcers Extremities: No digital cyanosis, No clubbing, Pedal pulses intact and symmetrical, Radial pulses intact and symmetrical, No calf tenderness Psychiatric: Alert and oriented to person, place and time, appropriate affect, intact judgement Neuro: Muscles Strength 5/5 in all 4 extremities, Sensation to light touch grossly present throughout, Cranial nerves II-XII grossly intact, no focal sensory deficits - Labs CBC & Chem 7: 03/10/20 05:45 03/10/20 05:45 Labs: Abnormal Lab Results - Last 24 Hours (Table) 03/10/20 03/11/20 Range/Units 17:23 05:48 D-Dimer 1.15 H 0.91 H (<0.60) mg/L FEU Microbiology - Last 24 Hours (Table) 03/09/20 15:24 Blood Culture - Preliminary Blood No Growth after 24 hours Assessment and Plan Plan: Acute hypoxic respiratory failure/acute exacerbation of COPD/acute covid 19 pneumonia O2 to keep sats above 92% IV steroids DuoNeb's Pulmonary service added remdisivir and 2 doses of convalescent plasma. Pro calcitonin negative Lower esophageal foreign body found on CXR Patient reported having an esophageal tear treated with clipping at [facility] about a month ago. Obtain records from [facility], DISCUSSED WITH SEWING TRIMMER. [facility] Pleuritic chest pain [place] when necessary Hypokalemia and hypomagnesemia Replaced Smoking Advised to quit Nicotine patch as needed Disposition: Likely home Anticipated discharge: 2-3 days
--- NOTE | 2020-03-11 12:59 | P.PN ---
Subjective Progress Note Date: 03/11/20 Principal diagnosis: Cough, weakness, shortness of breath, hypoxic, and generalized malaise This 65-year-old white female patient with past medical history of COPD, current smoker, patient states she quit smoking 2 days ago, hypertension, depression, history of previous back surgery, who presents to the emergency department for evaluation of worsening dyspnea, fatigue, and cough, she states she has been having symptoms for one week, started with generalized malaise, fatigue, cough, she did have diarrhea, some resting production. She recently quit smoking about 2 days ago. She does not see lung doctor on a regular basis, she is only on albuterol for her COPD. she states she feels short of breath, still coughing, chest x-ray in the emergency room showed chronic changes without acute pulmonary process, possible 2.0 cm ingested metallic foreign body in the distal esophagus. She states she had a history of esophageal tear with the history of surgical intervention and placement of a clip and this was done at [facility] a while back. No history of EtOH. Lab data was reviewed showing white blood cell, 6.2, hemoglobin of 10.6, INR is 1.0, potassium 3.4, CO2 is 23, Darvocet electrolytes were within normal limits, BUN of 15 creatinine 0.64, lactic acid was 1, troponin was less than 0.012, pro calcitonin was negative at 0.03, coronavirus PCR was positive. Patient is afebrile, she is currently on 2 L of oxygen and pulse ox is between 90-93%, blood pressure stable, she is noted to be mildly short of breath with conversation, she feels warm to touch on physical examination, however no recorded elevated temperature. On 03/11/2020 patient seen in follow-up on medical floor, she states she feels better, and she looks clinically better on today's exam as well. She is on day 2 of Remdesivir treatment, she received 1 unit of Colace and plasma, the second one will not be available for about a week. She is currently 3 L of oxygen pulse ox of 94%, she's been afebrile, CTA chest was completed, showing no evidence of pulmonary embolism, and mild peripheral patchy pulmonary interstitial infiltrates, no suspicious pulmonary mass, mild atelectasis at the lung bases. There was no mention of form and body in the distal esophagus. His d-dimer is down to 0.91, she had no acute events overnight, no worsening dyspnea. Objective - Vital Signs Vital signs: Vital Signs Temp 97.8 F 03/11/20 11:00 Pulse 100 03/11/20 11:00 Resp 16 03/11/20 11:00 BP 153/83 03/11/20 11:00 Pulse Ox 94 L 03/11/20 11:00 Intake & Output 03/10/20 03/11/20 03/11/20 18:59 06:59 18:59 Intake Total 1149 Balance 1149 Intake: Intake, IV Titration 250 Amount Remdesivir 200 mg In 250 Sodium Chloride 0.9% 250 ml @ 250 mls/hr IVPB ONCE ONE Rx#:[id number] Oral 500 Blood Product 399 Ffp Pher Conval Covid19 199 Acda 3 Unit [id number] Other: # Voids 2 # Bowel Movements 1 0 - Exam GENERAL EXAM: Alert, very pleasant, 65-year-old white female, 2 L of oxygen and the pulse ox 94%, appears to be mild short of breath with conversation but no acute distress noted comfortable in no apparent distress. HEAD: Normocephalic/atraumatic. EYES: Normal reaction of pupils, equal size. Conjunctiva pink, sclera white. NOSE: Clear with pink turbinates. THROAT: No erythema or exudates. NECK: No masses, no JVD, no thyroid enlargement, no adenopathy. CHEST: No chest wall deformity. Symmetrical expansion. LUNGS: Equal air entry with minimal basilar crackles CVS: Regular rate and rhythm, normal S1 and S2, no gallops, no murmurs, no rubs ABDOMEN: Soft, nontender. No hepatosplenomegaly, normal bowel sounds, no guarding or rigidity. EXTREMITIES: No clubbing, no edema, no cyanosis, 2+ pulses and upper and lower extremities. MUSCULOSKELETAL: Muscle strength and tone normal. SPINE: No scoliosis or deformity SKIN: No rashes CENTRAL NERVOUS SYSTEM: Alert and oriented -3. No focal deficits, tone is normal in all 4 extremities. PSYCHIATRIC: Alert and oriented -3. Appropriate affect. Intact judgment and insight. - Labs CBC & Chem 7: 03/10/20 05:45 03/10/20 05:45 Labs: Abnormal Lab Results - Last 24 Hours (Table) 03/10/20 03/11/20 Range/Units 17:23 05:48 D-Dimer 1.15 H 0.91 H (<0.60) mg/L FEU Microbiology - Last 24 Hours (Table) 03/09/20 15:24 Blood Culture - Preliminary Blood No Growth after 24 hours Assessment and Plan Plan: Assessment: #1. Acute hypoxic respiratory failure related to acute COVID 19 infection. Chest x-ray showed a chronic emphysematous and suspected pulmonary fibrotic changes without acute pulmonary process, CTA chest is pending, her onset of symptoms was one week ago, with worsening cough, dyspnea, fatigue, generalized malaise, chest discomfort which is likely pleuritic and diarrhea. Patient was started on Remdesivir on 03/10/2020, and 1 unit of convalescent plasma was given on 03/11/2020 #2. History of COPD not oxygen dependent at baseline #3. 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 Mild hypokalemia and hypomagnesemia #5. Hypertension #6. Lower esophageal foreign body seen on the chest x-ray on 2 different views, and the patient reports history of esophageal tear with placement of a clip at [facility] a while ago #7. Chronic back pain with history of surgery #8. Depression Plan: Continue Remdesivir, patient did receive her first unit of convalescent plasma, will continue with steroids, CT chest has been reviewed, no evidence of pulmonary embolism, Monopril patchy pulmonary interstitial infiltrates, no pulmonary mass. Clinically patient is feeling better, breathing possibly, we'll continue to closely follow. I performed a history & physical examination of the patient and discussed their management with my nurse practitioner, Silke Márquez. I reviewed the nurse practitioner's note and agree with the documented findings and plan of care. Lung sounds are positive for basilar crackles. The findings and the impression was discussed with the patient. I attest to the documentation by the nurse practitioner. Time with Patient: Less than 30
--- NOTE | 2020-03-11 13:33 | P.PN ---
Subjective Progress Note Date: 03/11/20 Principal diagnosis: Foreign body in the esophagus noted on chest x-ray Shortness of 65-year-old pleasant female who came into the emergency room with complaints of shortness of breath associated with cough. She tested positive for Covid-19 infection and was admitted to the hospital. She had a chest x-ray that showed a 2 cm metallic foreign body noted in the distal esophagus. Upon further questioning the patient states within the past month she was hospitalized with hematemesis and underwent an upper endoscopy. The patient states she had bleeding in the esophagus which required cautery and Endo Clip. Today she is seen and examined lying in bed. She states her breathing has improved. She states she is not having any abdominal pain, no difficulty with swallowing, and tolerating a regular diet. She denies any nausea or vomiting, or hematemesis. The patient's nurse stated the patient has a long history of EtOH abuse and is living at a [facility] with rehabilitation. The patient denies any alcohol use, states she did have however have heavy alcohol use ap proximately 10 years ago. Objective - Vital Signs Vital signs: Vital Signs Temp 97.8 F 03/11/20 11:00 Pulse 100 03/11/20 11:00 Resp 16 03/11/20 11:00 BP 153/83 03/11/20 11:00 Pulse Ox 94 L 03/11/20 11:00 Intake & Output 03/10/20 03/11/20 03/11/20 18:59 06:59 18:59 Intake Total 1149 Balance 1149 Intake: Intake, IV Titration 250 Amount Remdesivir 200 mg In 250 Sodium Chloride 0.9% 250 ml @ 250 mls/hr IVPB ONCE ONE Rx#:[id number] Oral 500 Blood Product 399 Ffp Pher Conval Covid19 199 Acda 3 Unit [id number] Other: # Voids 2 # Bowel Movements 1 0 - Exam General appearance: The patient is alert, oriented, in no acute distress. HET: Head is normocephalic and atraumatic. Conjunctiva pink. Sclera anicteric. Neck: Supple without lymphadenopathy. Abdomen: Soft, nontender, nondistended with bowel sounds. No guarding or rigidity. Extremities: Normal skin color and turgor. No pedal edema Neurological: No focal deficits. Alert and oriented 3. - Labs CBC & Chem 7: 03/10/20 05:45 03/10/20 05:45 Labs: Abnormal Lab Results - Last 24 Hours (Table) 03/10/20 03/11/20 Range/Units 17:23 05:48 D-Dimer 1.15 H 0.91 H (<0.60) mg/L FEU Microbiology - Last 24 Hours (Table) 03/09/20 15:24 Blood Culture - Preliminary Blood No Growth after 24 hours Assessment and Plan (1) Abnormal CXR Narrative/Plan: Esophageal foreign body noted on chest x-ray, most likely related to recent endoscopic intervention for upper GI bleed which patient states was possibly at [facility] or [facility], for which she underwent cautery with Endo Clip. Procedure note is available at the time of this dictation. Current Visit: Yes Status: Acute Code(s): R93.89 - ABNORMAL FINDINGS ON DX IMAGING OF OTH BODY STRUCTURES SNOMED Code(s): 175013392 (2) COVID-19 Narrative/Plan: Covid 19 infection/Covid 19 pneumonia with exacerbation of chronic obstructive pulmonary disease, presently on IV steroids. Current Visit: Yes Status: Acute Code(s): U07.1 - COVID-19 SNOMED Code(s): 762551695 Plan: 1. Try to obtain record of recent upper endoscopy 2. No indication for EGD at the present time 3. Continue with management of cold with 19 pneumonia 4. We will be on standby. Dr. Luly Graf I agree with the dictator's note, documented as a scribe by Jacqui Tai.
[2020-03-11] MEDS: REMDESIVIR 100 MG in SODIUM CHLORIDE 0.9% 250 ML IVPB SCH (18:44)
[2020-03-12] MEDS: methylPREDNISolone SOD SUCCI 125 MG/2 ML VIAL IV SCH ×3 (00:10→12:18)
[2020-03-12] MEDS: HYDROcodone/APAP 5-325MG 1 EACH TAB PO PRN ×6 (00:13→23:27)
[2020-03-12] MEDS: ALBUTEROL HFA INHALER INHALATION SCH ×4 (07:56→20:45)
[2020-03-12] MEDS: TIOTROPIUM 2.5 MCG INHALER INHALATION SCH (07:56)
[2020-03-12] MEDS: ASCORBIC ACID 500 MG TAB PO SCH ×2 (09:33→18:58)
[2020-03-12] MEDS: ENOXAPARIN 40 MG/0.4 ML SYRINGE SQ SCH (09:33)
[2020-03-12] MEDS: ZINC SULFATE 220 MG CAP PO SCH (09:33)
[2020-03-12] MEDS: CHOLECALCIFEROL 400 UNIT TAB PO SCH (09:33)
--- NOTE | 2020-03-12 10:56 | P.PN ---
Subjective Progress Note Date: 03/12/20 Principal diagnosis: sob Patient is still having significant shortness of breath with ambulation. She is doing okay while at rest. She feels minimal improvement. No fevers or chills. Objective - Vital Signs Vital signs: Vital Signs Temp 97.4 F L 03/12/20 05:00 Pulse 87 03/12/20 05:00 Resp 16 03/12/20 05:00 BP 146/81 03/12/20 05:00 Pulse Ox 92 L 03/12/20 05:00 Intake & Output 03/11/20 03/12/20 03/12/20 18:59 06:59 18:59 Intake Total 250 Balance 250 Intake: Intake, IV Titration 250 Amount Remdesivir 100 mg In 250 Sodium Chloride 0.9% 250 ml @ 250 mls/hr IVPB DAILY@1800 ANGELA Rx#: [id number] Other: # Voids 0 # Bowel Movements 0 - Exam Constitutional: Mild to moderate respiratory distress, mild accessory muscle use. Eyes:Anicteric sclerae, moist conjunctiva, no lid-lag, PERRLA, ENMT: Oropharynx clear, no erythema, exudates Neck: Supple, FROM, no masses, or JVD, No carotid bruits, No thyromegaly Lungs: Improving air exchange and less wheezing compared to prior exam. Cardiovascular: Tachycardic, regular, normal S1 and S2. No murmurs, gallops, or rubs, No peripheral edema Abdominal: Soft, Nontender, no guarding, rebound or rigidity, Normoactive bowel sounds, No hepatomegaly, No splenomegaly, No palpable mass Skin: Normal temperature, tone, texture, turgor, no induration, No subcutaneous nodules, No rash, lesions, No ulcers Extremities: No digital cyanosis, No clubbing, Pedal pulses intact and symmetrical, Radial pulses intact and symmetrical, No calf tenderness Psychiatric: Alert and oriented to person, place and time, appropriate affect, i ntact judgement Neuro: Muscles Strength 5/5 in all 4 extremities, Sensation to light touch grossly present throughout, Cranial nerves II-XII grossly intact, no focal sensory deficits - Labs CBC & Chem 7: 03/10/20 05:45 03/10/20 05:45 Labs: Microbiology - Last 24 Hours (Table) 03/09/20 15:24 Blood Culture - Preliminary Blood No Growth after 48 hours Assessment and Plan Plan: Acute hypoxic respiratory failure/acute exacerbation of COPD/acute covid 19 pneumonia O2 to keep sats above 92% IV steroids DuoNeb's Continue remdisivir Received 1 dose of convalescent plasma. Pro calcitonin negative Lower esophageal foreign body found on CXR Patient reported having an esophageal tear treated with clipping at [facility] about a month ago. Obtain records from [facility], DISCUSSED WITH TANK BUILDER AND ERECTOR. Pleuritic chest pain [place] when necessary Hypokalemia and hypomagnesemia Replaced Smoking Advised to quit Nicotine patch as needed Disposition: Likely home Anticipated discharge: 2-3 days
--- NOTE | 2020-03-12 12:49 | P.PN ---
Subjective Progress Note Date: 03/12/20 Principal diagnosis: Cough, weakness, shortness of breath, hypoxic, and generalized malaise This 65-year-old white female patient with past medical history of COPD, current smoker, patient states she quit smoking 2 days ago, hypertension, depression, history of previous back surgery, who presents to the emergency department for evaluation of worsening dyspnea, fatigue, and cough, she states she has been having symptoms for one week, started with generalized malaise, fatigue, cough, she did have diarrhea, some resting production. She recently quit smoking about 2 days ago. She does not see lung doctor on a regular basis, she is only on albuterol for her COPD. she states she feels short of breath, still coughing, chest x-ray in the emergency room showed chronic changes without acute pulmonary process, possible 2.0 cm ingested metallic foreign body in the distal esophagus. She states she had a history of esophageal tear with the history of surgical intervention and placement of a clip and this was done at [facility] a while back. No history of EtOH. Lab data was reviewed showing white blood cell, 6.2, hemoglobin of 10.6, INR is 1.0, potassium 3.4, CO2 is 23, Darvocet electrolytes were within normal limits, BUN of 15 creatinine 0.64, lactic acid was 1, troponin was less than 0.012, pro calcitonin was negative at 0.03, coronavirus PCR was positive. Patient is afebrile, she is currently on 2 L of oxygen and pulse ox is between 90-93%, blood pressure stable, she is noted to be mildly short of breath with conversation, she feels warm to touch on physical examination, however no recorded elevated temperature. On 03/11/2020 patient seen in follow-up on medical floor, she states she feels better, and she looks clinically better on today's exam as well. She is on day 2 of Remdesivir treatment, she received 1 unit of Colace and plasma, the second one will not be available for about a week. She is currently 3 L of oxygen pulse ox of 94%, she's been afebrile, CTA chest was completed, showing no evidence of pulmonary embolism, and mild peripheral patchy pulmonary interstitial infiltrates, no suspicious pulmonary mass, mild atelectasis at the lung bases. There was no mention of form and body in the distal esophagus. His d-dimer is down to 0.91, she had no acute events overnight, no worsening dyspnea. On 08/10/2020 patient seen in follow-up on medical floor, she states she is feeling about the same, but denies any shortness of breath, no significant cough, no complaints of chest discomfort, she still requiring supplemental oxygen, currently at 3 L, pulse ox 92%, she's been afebrile, hemodynamically stable, this is day 3 of Remdesivir treatment, she also received 1 unit of convalescent plasma yesterday on 03/11/2020. No new chest x-ray today, lab data reviewed, d-dimer is improving, down to 0.91. Does not seem to be in any acute distress, does have exertional dyspnea, she has had no fever or chills. No nausea vomiting or diarrhea. Objective - Vital Signs Vital signs: Vital Signs Temp 97.5 F L 03/12/20 11:00 Pulse 97 03/12/20 11:00 Resp 20 03/12/20 11:00 BP 143/75 03/12/20 11:00 Pulse Ox 92 L 03/12/20 11:00 Intake & Output 03/11/20 03/12/20 03/12/20 18:59 06:59 18:59 Intake Total 250 Balance 250 Intake: Intake, IV Titration 250 Amount Remdesivir 100 mg In 250 Sodium Chloride 0.9% 250 ml @ 250 mls/hr IVPB DAILY@1800 [facility] Rx#: [id number] Other: # Voids 0 # Bowel Movements 0 - Exam GENERAL EXAM: Alert, very pleasant, 65-year-old white female, 3 L of oxygen and the pulse ox 92%, appears to be mild short of breath with conversation but no acute distress noted comfortable in no apparent distress. HEAD: Normocephalic/atraumatic. EYES: Normal reaction of pupils, equal size. Conjunctiva pink, sclera white. NOSE: Clear with pink turbinates. THROAT: No erythema or exudates. NECK: No masses, no JVD, no thyroid enlargement, no adenopathy. CHEST: No chest wall deformity. Symmetrical expansion. LUNGS: Equal air entry with minimal basilar crackles CVS: Regular rate and rhythm, normal S1 and S2, no gallops, no murmurs, no rubs ABDOMEN: Soft, nontender. No hepatosplenomegaly, normal bowel sounds, no gu arding or rigidity. EXTREMITIES: No clubbing, no edema, no cyanosis, 2+ pulses and upper and lower e xtremities. MUSCULOSKELETAL: Muscle strength and tone normal. SPINE: No scoliosis or deformity SKIN: No rashes CENTRAL NERVOUS SYSTEM: Alert and oriented -3. No focal deficits, tone is normal in all 4 extremities. PSYCHIATRIC: Alert and oriented -3. Appropriate affect. Intact judgment and insight. - Labs CBC & Chem 7: 03/10/20 05:45 03/10/20 05:45 Labs: Microbiology - Last 24 Hours (Table) 03/09/20 15:24 Blood Culture - Preliminary Blood No Growth after 48 hours Assessment and Plan Plan: Assessment: #1. Acute hypoxic respiratory failure related to acute COVID 19 infection. Chest x-ray showed a chronic emphysematous and suspected pulmonary fibrotic changes without acute pulmonary process, CTA chest is pending, her onset of symptoms was one week ago, with worsening cough, dyspnea, fatigue, generalized malaise, chest discomfort which is likely pleuritic and diarrhea. Patient was started on Remdesivir on 03/10/2020, and 1 unit of convalescent plasma was given on 03/11/2020 #2. History of COPD not oxygen dependent at baseline #3. 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 Mild hypokalemia and hypomagnesemia #5. Hypertension #6. Lower esophageal foreign body seen on the chest x-ray on 2 different views, and the patient reports history of esophageal tear with placement of a clip at [facility] a while ago #7. Chronic back pain with history of surgery #8. Depression Plan: Continue current medical treatment, patient is currently on Remdesivir, day 3 of treatment, she status post transfusion with 1 unit of convalescent immunoglobulin for COVID 19, continue the steroids, and prophylactic Lovenox, we'll continue to follow. I performed a history & physical examination of the patient and discussed their management with my nurse practitioner, Silke Márquez. I reviewed the nurse practitioner's note and agree with the documented findings and plan of care. Lung sounds are positive for basilar crackles. The findings and the impression was discussed with the patient. I attest to the documentation by the nurse practitioner. Time with Patient: Less than 30
[2020-03-12] MEDS: ALPRAZolam 0.25 MG TAB PO PRN (17:49)
[2020-03-12] MEDS: REMDESIVIR 100 MG in SODIUM CHLORIDE 0.9% 250 ML IVPB SCH (17:49)
[2020-03-12] MEDS: methylPREDNISolone SOD SUCCI 40 MG/ML 1 ML VIAL IV SCH ×2 (17:49→23:26)
[2020-03-13] MEDS: HYDROcodone/APAP 5-325MG 1 EACH TAB PO PRN ×4 (04:20→19:49)
[2020-03-13] MEDS: methylPREDNISolone SOD SUCCI 40 MG/ML 1 ML VIAL IV SCH ×3 (05:35→18:05)
[2020-03-13] MEDS: ENOXAPARIN 40 MG/0.4 ML SYRINGE SQ SCH (07:28)
[2020-03-13] MEDS: ASCORBIC ACID 500 MG TAB PO SCH ×2 (07:28→20:00)
[2020-03-13] MEDS: CHOLECALCIFEROL 400 UNIT TAB PO SCH (07:29)
[2020-03-13] MEDS: ZINC SULFATE 220 MG CAP PO SCH (07:29)
[2020-03-13] MEDS: TIOTROPIUM 2.5 MCG INHALER INHALATION SCH (07:46)
[2020-03-13] MEDS: ALBUTEROL HFA INHALER INHALATION SCH ×4 (07:46→20:36)
--- NOTE | 2020-03-13 12:08 | P.PN ---
Subjective Progress Note Date: 03/13/20 Principal diagnosis: Cough, weakness, shortness of breath, hypoxic, and generalized malaise This 65-year-old white female patient with past medical history of COPD, current smoker, patient states she quit smoking 2 days ago, hypertension, depression, history of previous back surgery, who presents to the emergency department for evaluation of worsening dyspnea, fatigue, and cough, she states she has been having symptoms for one week, started with generalized malaise, fatigue, cough, she did have diarrhea, some resting production. She recently quit smoking about 2 days ago. She does not see lung doctor on a regular basis, she is only on albuterol for her COPD. she states she feels short of breath, still coughing, chest x-ray in the emergency room showed chronic changes without acute pulmonary process, possible 2.0 cm ingested metallic foreign body in the distal esophagus. She states she had a history of esophageal tear with the history of surgical intervention and placement of a clip and this was done at [facility] a while back. No history of EtOH. Lab data was reviewed showing white blood cell, 6.2, hemoglobin of 10.6, INR is 1.0, potassium 3.4, CO2 is 23, Darvocet electrolytes were within normal limits, BUN of 15 creatinine 0.64, lactic acid was 1, troponin was less than 0.012, pro calcitonin was negative at 0.03, coronavirus PCR was positive. Patient is afebrile, she is currently on 2 L of oxygen and pulse ox is between 90-93%, blood pressure stable, she is noted to be mildly short of breath with conversation, she feels warm to touch on physical examination, however no recorded elevated temperature. On 03/11/2020 patient seen in follow-up on medical floor, she states she feels better, and she looks clinically better on today's exam as well. She is on day 2 of Remdesivir treatment, she received 1 unit of Colace and plasma, the second one will not be available for about a week. She is currently 3 L of oxygen pulse ox of 94%, she's been afebrile, CTA chest was completed, showing no evidence of pulmonary embolism, and mild peripheral patchy pulmonary interstitial infiltrates, no suspicious pulmonary mass, mild atelectasis at the lung bases. There was no mention of form and body in the distal esophagus. His d-dimer is down to 0.91, she had no acute events overnight, no worsening dyspnea. On 08/10/2020 patient seen in follow-up on medical floor, she states she is feeling about the same, but denies any shortness of breath, no significant cough, no complaints of chest discomfort, she still requiring supplemental oxygen, currently at 3 L, pulse ox 92%, she's been afebrile, hemodynamically stable, this is day 3 of Remdesivir treatment, she also received 1 unit of convalescent plasma yesterday on 03/11/2020. No new chest x-ray today, lab data reviewed, d-dimer is improving, down to 0.91. Does not seem to be in any acute distress, does have exertional dyspnea, she has had no fever or chills. No nausea vomiting or diarrhea. On 03/13/2020 patient seen in follow-up on medical floor. Today's date for of Remdesivir, she is status post 1 unit of convalescent plasma, continues on steroids, and vitamins continues on prophylactic dose of Lovenox, she reports feeling better, breathing easier, 3 L of oxygen pulse ox of 90%, hemodynamically stable, she is afebrile. Follow-up d-dimer came back improved and is down to 0.91 from previously 1.15. She said no acute events overnight. Remains on IV steroids 40 mg every 6 hours. Objective - Vital Signs Vital signs: Vital Signs Temp 97.8 F 03/13/20 11:00 Pulse 94 03/13/20 11:00 Resp 20 03/13/20 11:00 BP 157/80 03/13/20 11:00 Pulse Ox 94 L 03/13/20 11:00 Intake & Output 03/12/20 03/13/20 03/13/20 18:59 06:59 18:59 Intake Total 250 Balance 250 Intake: Intake, IV Titration 250 Amount Remdesivir 100 mg In 250 Sodium Chloride 0.9% 250 ml @ 250 mls/hr IVPB DAILY@1800 [facility] Rx#: [id number] Other: # Voids 4 4 # Bowel Movements 0 1 - Exam GENERAL EXAM: Alert, very pleasant, 65-year-old white female, 3 L of oxygen and the pulse ox 94%, appears to be mild short of breath with conversation but no acute distress noted comfortable in no apparent distress. HEAD: Normocephalic/atraumatic. EYES: Normal reaction of pupils, equal size. Conjunctiva pink, sclera white. NOSE: Clear with pink turbinates. THROAT: No erythema or exudates. NECK: No masses, no JVD, no thyroid enlargement, no adenopathy. CHEST: No chest wall deformity. Symmetrical expansion. LUNGS: Equal air entry with minimal basilar crackles CVS: Regular rate and rhythm, normal S1 and S2, no gallops, no murmurs, no rubs ABDOMEN: Soft, nontender. No hepatosplenomegaly, normal bowel sounds, no guarding or rigidity. EXTREMITIES: No clubbing, no edema, no cyanosis, 2+ pulses and upper and lower extremities. MUSCULOSKELETAL: Muscle strength and tone normal. SPINE: No scoliosis or deformity SKIN: No rashes CENTRAL NERVOUS SYSTEM: Alert and oriented -3. No focal deficits, tone is normal in all 4 extremities. PSYCHIATRIC: Alert and oriented -3. Appropriate affect. Intact judgment and insight. - Labs CBC & Chem 7: 03/10/20 05:45 03/10/20 05:45 Labs: Microbiology - Last 24 Hours (Table) 03/09/20 15:24 Blood Culture - Preliminary Blood No Growth after 72 hours Assessment and Plan Plan: Assessment: #1. Acute hypoxic respiratory failure related to acute COVID 19 infection. Chest x-ray showed a chronic emphysematous and suspected pulmonary fibrotic changes without acute pulmonary process, CTA chest is pending, her onset of symptoms was one week ago, with worsening cough, dyspnea, fatigue, generalized malaise, chest discomfort which is likely pleuritic and diarrhea. Patient was started on Remdesivir on 03/10/2020, and 1 unit of convalescent plasma was given on 03/11/2020 #2. History of COPD not oxygen dependent at baseline #3. 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 Mild hypokalemia and hypomagnesemia #5. Hypertension #6. Lower esophageal foreign body seen on the chest x-ray on 2 different views, and the patient reports history of esophageal tear with placement of a clip at [facility] a while ago #7. Chronic back pain with history of surgery #8. Depression Plan: We'll continue current medical treatment, continue IV steroids, patient is on day 4 for Remdesivir treatment, continue prophylactic dose Lovenox, we'll obtain a follow-up chest x-ray tomorrow, patient is feeling better, possible discharge tomorrow after her final dose of Remdesivir she continues to do well. I performed a history & physical examination of the patient and discussed their management with my nurse practitioner, Silke Márquez. I reviewed the nurse practitioner's note and agree with the documented findings and plan of care. Lung sounds are positive for basilar crackles. The findings and the impression was discussed with the patient. I attest to the documentation by the nurse practitioner. Time with Patient: Less than 30
[2020-03-13] MEDS: ALPRAZolam 0.25 MG TAB PO PRN (12:26)
--- NOTE | 2020-03-13 12:52 | P.PN ---
Subjective Progress Note Date: 03/13/20 Principal diagnosis: sob Patient continues to report not feeling better despite looking clinically better. She continues to have coughing and shortness of breath. No fevers or c hills. Objective - Vital Signs Vital signs: Vital Signs Temp 97.8 F 03/13/20 11:00 Pulse 94 03/13/20 11:00 Resp 20 03/13/20 11:00 BP 157/80 03/13/20 11:00 Pulse Ox 94 L 03/13/20 11:00 Intake & Output 03/12/20 03/13/20 03/13/20 18:59 06:59 18:59 Intake Total 250 Balance 250 Intake: Intake, IV Titration 250 Amount Remdesivir 100 mg In 250 Sodium Chloride 0.9% 250 ml @ 250 mls/hr IVPB DAILY@1800 [facility] Rx#: [id number] Other: # Voids 4 4 # Bowel Movements 0 1 - Exam Constitutional: Mild to moderate respiratory distress, mild accessory muscle use. Eyes:Anicteric sclerae, moist conjunctiva, no lid-lag, PERRLA, ENMT: Oropharynx clear, no erythema, exudates Neck: Supple, FROM, no masses, or JVD, No carotid bruits, No thyromegaly Lungs: Improving air exchange and less wheezing compared to prior exam. Cardiovascular: Tachycardic, regular, normal S1 and S2. No murmurs, gallops, or rubs, No peripheral edema Abdominal: Soft, Nontender, no guarding, rebound or rigidity, Normoactive bowel sounds, No hepatomegaly, No splenomegaly, No palpable mass Skin: Normal temperature, tone, texture, turgor, no induration, No subcutaneous nodules, No rash, lesions, No ulcers Extremities: No digital cyanosis, No clubbing, Pedal pulses intact and symmetrical, Radial pulses intact and symmetrical, No calf tenderness Psychiatric: Alert and oriented to person, place and time, appropriate affect, intact judgement Neuro: Muscles Strength 5/5 in all 4 extremities, Sensation to light touch gross ly present throughout, Cranial nerves II-XII grossly intact, no focal sensory deficits - Labs CBC & Chem 7: 03/10/20 05:45 03/10/20 05:45 Labs: Microbiology - Last 24 Hours (Table) 03/09/20 15:24 Blood Culture - Preliminary Blood No Growth after 72 hours Assessment and Plan Plan: Acute hypoxic respiratory failure/acute exacerbation of COPD/acute covid 19 pneumonia O2 to keep sats above 92% IV steroids DuoNeb's Continue remdisivir Received 1 dose of convalescent plasma. Pro calcitonin negative Lower esophageal foreign body found on CXR Patient reported having an esophageal tear treated with clipping at [facility] about a month ago. Records obtained from [facility]--the foreign body was a metal clipping of lower esophageal bleeding according to the records. Pleuritic chest pain [place] when necessary Hypokalemia and hypomagnesemia Replaced Smoking Advised to quit Nicotine patch as needed Disposition: Likely home Anticipated discharge: Tomorrow
[2020-03-13] MEDS: REMDESIVIR 100 MG in SODIUM CHLORIDE 0.9% 250 ML IVPB SCH (18:05)
[2020-03-14] MEDS: methylPREDNISolone SOD SUCCI 40 MG/ML 1 ML VIAL IV SCH ×4 (00:18→17:58)
[2020-03-14] MEDS: ALPRAZolam 0.25 MG TAB PO PRN ×2 (00:25→18:31)
[2020-03-14 07:16] LABS: HCT 36.3 % (34.0-46.0); HGB 11.2 gm/dL (11.4-16.0); Hypochromasia Moderate; MCHC 30.9 g/dL (31.0-37.0); MCV 90.6 fL (80.0-100.0); Mean Platelet Volume 8.4; Platelet Count 383 k/uL (150-450); Poikilocytosis Slight; RBC 4.01 m/uL (3.80-5.40); RDW 15.3 % (11.5-15.5)
--- NOTE | 2020-03-14 07:31 | XR ---
EXAMINATION TYPE: XR chest 1V portable DATE OF EXAM: 03/14/2020 COMPARISON: 03/09/2020 HISTORY: Shortness of breath TECHNIQUE: Single frontal view of the chest is obtained. FINDINGS: Postsurgical change overlying the cervical spine. No pneumothorax. Subsegmental changes at both lung bases. No overt failure. Heart size normal. IMPRESSION: 1. Mild prominence of the interstitium at the lung bases could been the basis of mild interstitial pn eumonitis patchy infiltrate correlate clinically.
[2020-03-14] MEDS: HYDROcodone/APAP 5-325MG 1 EACH TAB PO PRN ×4 (07:44→20:02)
[2020-03-14] MEDS: ASCORBIC ACID 500 MG TAB PO SCH ×2 (07:46→20:02)
[2020-03-14] MEDS: ENOXAPARIN 40 MG/0.4 ML SYRINGE SQ SCH (07:46)
[2020-03-14] MEDS: ZINC SULFATE 220 MG CAP PO SCH (07:46)
[2020-03-14] MEDS: CHOLECALCIFEROL 400 UNIT TAB PO SCH (07:50)
[2020-03-14] MEDS: TIOTROPIUM 2.5 MCG INHALER INHALATION SCH (08:07)
[2020-03-14] MEDS: ALBUTEROL HFA INHALER INHALATION SCH ×4 (08:07→19:34)
--- NOTE | 2020-03-14 09:35 | P.PN ---
Subjective Progress Note Date: 03/14/20 Principal diagnosis: sob Patient is currently doing well, she is finishing up remdisivir course. Patient still gets short of breath when she ambulates. Overall she is noticing only minimal improvement compared to admission. Objective - Vital Signs Vital signs: Vital Signs Temp 97.6 F 03/14/20 05:15 Pulse 86 03/14/20 05:15 Resp 18 03/14/20 05:15 BP 150/81 03/14/20 05:15 Pulse Ox 97 03/14/20 05:15 Intake & Output 03/13/20 03/14/20 03/14/20 18:59 06:59 18:59 Intake Total 370 Balance 370 Intake: Intake, IV Titration 250 Amount Remdesivir 100 mg In 250 Sodium Chloride 0.9% 250 ml @ 250 mls/hr IVPB DAILY@1800 [facility] Rx#: [id number] Oral 120 Other: # Voids 5 # Bowel Movements 1 - Exam Constitutional: Mild to moderate respiratory distress, mild accessory muscle use. Eyes:Anicteric sclerae, moist conjunctiva, no lid-lag, PERRLA, ENMT: Oropharynx clear, no erythema, exudates Neck: Supple, FROM, no masses, or JVD, No carotid bruits, No thyromegaly Lungs: Improving air exchange and less wheezing compared to prior exam. Cardiovascular: Tachycardic, regular, normal S1 and S2. No murmurs, gallops, or rubs, No peripheral edema Abdominal: Soft, Nontender, no guarding, rebound or rigidity, Normoactive bowel sounds, No hepatomegaly, No splenomegaly, No palpable mass Skin: Normal temperature, tone, texture, turgor, no induration, No subcutaneous nodules, No rash, lesions, No ulcers Extremities: No digital cyanosis, No clubbing, Pedal pulses intact and symmetrical, Radial pulses intact and symmetrical, No calf tenderness Psychiatric: Alert and oriented to person, place and time, appropriate affect, intact judgement Neuro: Muscles Strength 5/5 in all 4 extremities, Sensation to light touch grossly present throughout, Cranial nerves II-XII grossly intact, no focal sensory deficits - Labs CBC & Chem 7: 03/14/20 06:47 03/10/20 05:45 Labs: Abnormal Lab Results - Last 24 Hours (Table) 03/14/20 Range/Units 06:47 Hgb 11.2 L (11.4-16.0) gm/dL MCHC 30.9 L (31.0-37.0) g/dL Microbiology - Last 24 Hours (Table) 03/09/20 15:24 Blood Culture - Preliminary Blood No Growth after 96 hours Assessment and Plan Plan: Acute hypoxic respiratory failure/acute exacerbation of COPD/acute covid 19 pneumonia O2 to keep sats above 92% IV steroids DuoNeb's Continue remdisivir Received 1 dose of convalescent plasma. Pro calcitonin negative, Pulmonary following Lower esophageal foreign body found on CXR Patient reported having an esophageal tear treated with clipping at [facility] about a month ago. Records obtained from [facility]--the foreign body was a metal clipping of lower esophageal bleeding according to the records. Pleuritic chest pain [place] when necessary Hypokalemia and hypomagnesemia Replaced Smoking Advised to quit Nicotine patch as needed Disposition: Likely home Anticipated discharge: Tomorrow
[2020-03-14 11:54] LABS: African American GFR (CKD) 111.6 (60.0-200.0); BUN/Creat Ratio 48.33 Ratio (12.00-20.00); Calcium 8.9 mg/dL (8.7-10.3); Magnesium 1.9 mg/dL (1.5-2.4); Non-African American GFR(CKD) 96.3 (60.0-200.0); Potassium 4.3 mmol/L (3.5-5.5); Total Bilirubin 0.3 mg/dL (0.3-1.2)
--- NOTE | 2020-03-14 13:13 | P.PN ---
Subjective Progress Note Date: 03/14/20 Principal diagnosis: CoVID 19 pneumonitis This 65-year-old white female patient with past medical history of COPD, current smoker, patient states she quit smoking 2 days ago, hypertension, depression, history of previous back surgery, who presents to the emergency department for evaluation of worsening dyspnea, fatigue, and cough, she states she has been having symptoms for one week, started with generalized malaise, fatigue, cough, she did have diarrhea, some resting production. She recently quit smoking about 2 days ago. She does not see lung doctor on a regular basis, she is only on albuterol for her COPD. she states she feels short of breath, still coughing, chest x-ray in the emergency room showed chronic changes without acute pulmonary process, possible 2.0 cm ingested metallic foreign body in the distal esophagus. She states she had a history of esophageal tear with the history of surgical intervention and placement of a clip and this was done at [facility] a while back. No history of EtOH. Lab data was reviewed showing white blood cell, 6.2, hemoglobin of 10.6, INR is 1.0, potassium 3.4, CO2 is 23, Darvocet electrolytes were within normal limits, BUN of 15 creatinine 0.64, lactic acid was 1, troponin was less than 0.012, pro calcitonin was negative at 0.03, coronavirus PCR was positive. Patient is afebrile, she is currently on 2 L of oxygen and pulse ox is between 90-93%, blood pressure stable, she is noted to be mildly short of breath with conversation, she feels warm to touch on physical examination, however no recorded elevated temperature. On 03/11/2020 patient seen in follow-up on medical floor, she states she feels better, and she looks clinically better on today's exam as well. She is on day 2 of Remdesivir treatment, she received 1 unit of Colace and plasma, the second one will not be available for about a week. She is currently 3 L of oxygen pulse ox of 94%, she's been afebrile, CTA chest was completed, showing no evidence of pulmonary embolism, and mild peripheral patchy pulmonary interstitial infiltrates, no suspicious pulmonary mass, mild atelectasis at the lung bases. There was no mention of form and body in the distal esophagus. His d-dimer is down to 0.91, she had no acute events overnight, no worsening dyspnea. On 08/10/2020 patient seen in follow-up on medical floor, she states she is feeling about the same, but denies any shortness of breath, no significant cough, no complaints of chest discomfort, she still requiring supplemental oxygen, currently at 3 L, pulse ox 92%, she's been afebrile, hemodynamically stable, this is day 3 of Remdesivir treatment, she also received 1 unit of convalescent plasma yesterday on 03/11/2020. No new chest x-ray today, lab data reviewed, d-dimer is improving, down to 0.91. Does not seem to be in any acute distress, does have exertional dyspnea, she has had no fever or chills. No nausea vomiting or diarrhea. On 03/13/2020 patient seen in follow-up on medical floor. Today's date for of Remdesivir, she is status post 1 unit of convalescent plasma, continues on steroids, and vitamins continues on prophylactic dose of Lovenox, she reports feeling better, breathing easier, 3 L of oxygen pulse ox of 90%, hemodynamically stable, she is afebrile. Follow-up d-dimer came back improved and is down to 0.91 from previously 1.15. She said no acute events overnight. Remains on IV steroids 40 mg every 6 hours. The patient is seen today 03/14/2020 in follow-up on the regular medical floor. She is currently resting quite comfortably in bed. Awake and alert in no acute distress. Maintaining good O2 saturations in the mid 90s on 3 L/m per nasal cannula. Afebrile. Hemodynamically stable. This is day #5 of her Remdesivir. White count 8.0. Hemoglobin 11.2. Sodium 137. Potassium 4.3. Creatinine 0.6. Continue on Lovenox, IV Solu-Medrol, bronchodilators, vitamin supplements. Objective - Vital Signs Vital signs: Vital Signs Temp 97.6 F 03/14/20 11:00 Pulse 98 03/14/20 11:00 Resp 15 03/14/20 11:00 BP 161/81 03/14/20 11:00 Pulse Ox 96 03/14/20 11:00 Intake & Output 03/13/20 03/14/20 03/14/20 18:59 06:59 18:59 Intake Total 370 Balance 370 Intake: Intake, IV Titration 250 Amount Remdesivir 100 mg In 250 Sodium Chloride 0.9% 250 ml @ 250 mls/hr IVPB DAILY@1800 [facility] Rx#: [id number] Oral 120 Other: # Voids 5 # Bowel Movements 1 - Exam GENERAL EXAM: Alert, very pleasant, 65-year-old female patient, 3 L of oxygen and the pulse ox 96%, comfortable in no apparent distress. HEAD: Normocephalic/atraumatic. EYES: Normal reaction of pupils, equal size. Conjunctiva pink, sclera white. NOSE: Clear with pink turbinates. THROAT: No erythema or exudates. NECK: No masses, no JVD, no thyroid enlargement, no adenopathy. CHEST: No chest wall deformity. Symmetrical expansion. LUNGS: Equal air entry with minimal basilar crackles CVS: Regular rate and rhythm, normal S1 and S2, no gallops, no murmurs, no rubs ABDOMEN: Soft, nontender. No hepatosplenomegaly, normal bowel sounds, no guarding or rigidity. EXTREMITIES: No clubbing, no edema, no cyanosis, 2+ pulses and upper and lower extremities. MUSCULOSKELETAL: Muscle strength and tone normal. SPINE: No scoliosis or deformity SKIN: No rashes CENTRAL NERVOUS SYSTEM: No focal deficits, tone is normal in all 4 extremities. PSYCHIATRIC: Alert and oriented -3. Appropriate affect. Intact judgment and insight. - Labs CBC & Chem 7: 03/14/20 06:47 03/14/20 06:47 Labs: Abnormal Lab Results - Last 24 Hours (Table) 03/14/20 03/14/20 Range/Units 06:47 06:47 Hgb 11.2 L (11.4-16.0) gm/dL MCHC 30.9 L (31.0-37.0) g/dL BUN 29.0 H (9.0-27.0) mg/dL BUN/Creatinine Ratio 48.33 H (12.00-20.00) Ratio Glucose 152 H (70-110) mg/dL Total Protein 6.0 L (6.2-8.2) g/dL Microbiology - Last 24 Hours (Table) 03/09/20 15:24 Blood Culture - Preliminary Blood No Growth after 96 hours Assessment and Plan Assessment: 1 Acute hypoxic respiratory failure related to acute COVID 19 infection. Chest x-ray showed a chronic emphysematous and suspected pulmonary fibrotic changes without acute pulmonary process, CTA chest is pending, her onset of symptoms was one week ago, with worsening cough, dyspnea, fatigue, generalized malaise, chest discomfort which is likely pleuritic and diarrhea. Patient was started on Remdesivir on 03/10/2020, and 1 unit of convalescent plasma was given on 021 2 History of COPD not oxygen dependent at baseline 3 Chronic and ongoing history of nicotine dependence, in remission for last 2 days 4 Mild hypokalemia and hypomagnesemia 5 Hypertension 6 Lower esophageal foreign body seen on the chest x-ray on 2 different views, and the patient reports history of esophageal tear with placement of a clip at [facility] a while ago 7 Chronic back pain with history of surgery 8 Depression 9 Homeless Plan: The patient was seen and evaluated by Dr. Marcellus Pringle is her last dose of Remdesivir Could be discharged tomorrow She states she resides at a [facility] house and not sure if she can go back Social work and discharge planning is in place Evaluate for possible home oxygen We'll continue to follow I, the cosigning physician, performed a history & physical examination of the patient. Lungs sounds with faint crackles in the posterior bases. Maintaining good O2 saturations in the 90s on 2 L/m per nasal cannula. I discussed the assessment and plan of care with my nurse practitioner, Daniella Brooks. I attest to the above note as dictated by her.
[2020-03-14] MEDS: REMDESIVIR 100 MG in SODIUM CHLORIDE 0.9% 250 ML IVPB SCH (17:55)
[2020-03-15] MEDS: methylPREDNISolone SOD SUCCI 40 MG/ML 1 ML VIAL IV SCH ×3 (00:20→11:53)
[2020-03-15] MEDS: ALPRAZolam 0.25 MG TAB PO PRN ×3 (00:20→21:16)
[2020-03-15] MEDS: HYDROcodone/APAP 5-325MG 1 EACH TAB PO PRN ×3 (06:10→17:19)
[2020-03-15] MEDS: TIOTROPIUM 2.5 MCG INHALER INHALATION SCH (07:24)
[2020-03-15] MEDS: ALBUTEROL HFA INHALER INHALATION SCH ×4 (07:24→20:36)
[2020-03-15] MEDS: ZINC SULFATE 220 MG CAP PO SCH (09:31)
[2020-03-15] MEDS: CHOLECALCIFEROL 400 UNIT TAB PO SCH (09:31)
[2020-03-15] MEDS: ASCORBIC ACID 500 MG TAB PO SCH ×2 (09:31→20:47)
[2020-03-15] MEDS: ENOXAPARIN 40 MG/0.4 ML SYRINGE SQ SCH (09:32)
--- NOTE | 2020-03-15 12:25 | P.PN ---
Subjective Progress Note Date: 03/15/20 Principal diagnosis: CoVID 19 pneumonitis This 65-year-old white female patient with past medical history of COPD, current smoker, patient states she quit smoking 2 days ago, hypertension, depression, history of previous back surgery, who presents to the emergency department for evaluation of worsening dyspnea, fatigue, and cough, she states she has been having symptoms for one week, started with generalized malaise, fatigue, cough, she did have diarrhea, some resting production. She recently quit smoking about 2 days ago. She does not see lung doctor on a regular basis, she is only on albuterol for her COPD. she states she feels short of breath, still coughing, chest x-ray in the emergency room showed chronic changes without acute pulmonary process, possible 2.0 cm ingested metallic foreign body in the distal esophagus. She states she had a history of esophageal tear with the history of surgical intervention and placement of a clip and this was done at [facility] a while back. No history of EtOH. Lab data was reviewed showing white blood cell, 6.2, hemoglobin of 10.6, INR is 1.0, potassium 3.4, CO2 is 23, Darvocet electrolytes were within normal limits, BUN of 15 creatinine 0.64, lactic acid was 1, troponin was less than 0.012, pro calcitonin was negative at 0.03, coronavirus PCR was positive. Patient is afebrile, she is currently on 2 L of oxygen and pulse ox is between 90-93%, blood pressure stable, she is noted to be mildly short of breath with conversation, she feels warm to touch on physical examination, however no recorded elevated temperature. On 03/11/2020 patient seen in follow-up on medical floor, she states she feels better, and she looks clinically better on today's exam as well. She is on day 2 of Remdesivir treatment, she received 1 unit of Colace and plasma, the second one will not be available for about a week. She is currently 3 L of oxygen pulse ox of 94%, she's been afebrile, CTA chest was completed, showing no evidence of pulmonary embolism, and mild peripheral patchy pulmonary interstitial infiltrates, no suspicious pulmonary mass, mild atelectasis at the lung bases. There was no mention of form and body in the distal esophagus. His d-dimer is down to 0.91, she had no acute events overnight, no worsening dyspnea. On 08/10/2020 patient seen in follow-up on medical floor, she states she is feeling about the same, but denies any shortness of breath, no significant cough, no complaints of chest discomfort, she still requiring supplemental oxygen, currently at 3 L, pulse ox 92%, she's been afebrile, hemodynamically stable, this is day 3 of Remdesivir treatment, she also received 1 unit of convalescent plasma yesterday on 03/11/2020. No new chest x-ray today, lab data reviewed, d-dimer is improving, down to 0.91. Does not seem to be in any acute distress, does have exertional dyspnea, she has had no fever or chills. No nausea vomiting or diarrhea. On 03/13/2020 patient seen in follow-up on medical floor. Today's date for of Remdesivir, she is status post 1 unit of convalescent plasma, continues on steroids, and vitamins continues on prophylactic dose of Lovenox, she reports feeling better, breathing easier, 3 L of oxygen pulse ox of 90%, hemodynamically stable, she is afebrile. Follow-up d-dimer came back improved and is down to 0.91 from previously 1.15. She said no acute events overnight. Remains on IV steroids 40 mg every 6 hours. The patient is seen today 03/14/2020 in follow-up on the regular medical floor. She is currently resting quite comfortably in bed. Awake and alert in no acute distress. Maintaining good O2 saturations in the mid 90s on 3 L/m per nasal cannula. Afebrile. Hemodynamically stable. This is day #5 of her Remdesivir. White count 8.0. Hemoglobin 11.2. Sodium 137. Potassium 4.3. Creatinine 0.6. Continue on Lovenox, IV Solu-Medrol, bronchodilators, vitamin supplements. The patient is seen today August or 2020 follow-up on the regular medical floor. She is awake and alert in no acute distress. Resting completely in bed. Denies any worsening shortness of breath, cough or congestion. Getting good O2 sat chair she is in the mid 90s on room air. She's afebrile. She has completed her Remdesivir. Received 1 dose of convalescent plasma. Remains on Lovenox, Solu-Medrol, bronchodilators, vitamin supplements. Objective - Vital Signs Vital signs: Vital Signs Temp 97.6 F 03/15/20 12:01 Pulse 102 H 03/15/20 12:01 Resp 18 03/15/20 12:01 BP 158/83 03/15/20 12:01 Pulse Ox 97 03/15/20 12:01 Intake & Output 03/14/20 03/15/20 03/15/20 18:59 06:59 18:59 Intake Total 360 Balance 360 Intake: Oral 360 Other: # Voids 3 - Exam GENERAL EXAM: Alert, very pleasant, 65-year-old female patient, room air and the pulse ox 97%, comfortable in no apparent distress. HEAD: Normocephalic/atraumatic. EYES: Normal reaction of pupils, equal size. Conjunctiva pink, sclera white. NOSE: Clear with pink turbinates. THROAT: No erythema or exudates. NECK: No masses, no JVD, no thyroid enlargement, no adenopathy. CHEST: No chest wall deformity. Symmetrical expansion. LUNGS: Equal air entry with minimal basilar crackles CVS: Regular rate and rhythm, normal S1 and S2, no gallops, no murmurs, no rubs ABDOMEN: Soft, nontender. No hepatosplenomegaly, normal bowel sounds, no guar ding or rigidity. EXTREMITIES: No clubbing, no edema, no cyanosis, 2+ pulses and upper and lower extremities. MUSCULOSKELETAL: Muscle strength and tone normal. SPINE: No scoliosis or deformity SKIN: No rashes CENTRAL NERVOUS SYSTEM: No focal deficits, tone is normal in all 4 extremities. PSYCHIATRIC: Alert and oriented -3. Appropriate affect. Intact judgment and insight. - Labs CBC & Chem 7: 03/14/20 06:47 03/14/20 06:47 Labs: Microbiology - Last 24 Hours (Table) 03/09/20 15:24 Blood Culture - Preliminary Blood No Growth after 120 hours Assessment and Plan Assessment: 1 Acute hypoxic respiratory failure related to acute COVID 19 infection. Chest x-ray showed a chronic emphysematous and suspected pulmonary fibrotic changes without acute pulmonary process, CTA chest is pending, her onset of symptoms was one week ago, with worsening cough, dyspnea, fatigue, generalized malaise, chest discomfort which is likely pleuritic and diarrhea. Patient was started on Re mdesivir on 03/10/2020, and 1 unit of convalescent plasma was given on 03/11/2020 2 History of COPD not oxygen dependent at baseline 3 Chronic and ongoing history of nicotine dependence, in remission since admission 4 Mild hypokalemia and hypomagnesemia 5 Hypertension 6 Lower esophageal foreign body seen on the chest x-ray on 2 different views, and the patient reports history of esophageal tear with placement of a clip at [facility] a while ago 7 Chronic back pain with history of surgery 8 Depression 9 Homeless Plan: The patient was seen and evaluated by Dr. Germain Cleared for discharge from thr pulmonary standpoint Could complete a prednisone taper. Continue bronchodilators I, the cosigning physician, performed a history & physical examination of the patient. Lungs sounds with faint crackles in the posterior bases. Maintaining good O2 saturations in the 90s on room air. I discussed the assessment and plan of care with my nurse practitioner, Daniella Brooks. I attest to the above note as dictated by her.
[2020-03-15 12:26] VITALS: BMI 24.0
--- NOTE | 2020-03-15 15:48 | P.PN ---
Subjective Progress Note Date: 03/15/20 Principal diagnosis: sob Patient states that she is not feeling any better. However she continues to say that every day during my follow-up with her. States that she continues to have shortness of breath and cough. She is concerned about going back home because her roommates won't take her back due to having covid. Objective - Vital Signs Vital signs: Vital Signs Temp 97.6 F 03/15/20 12:01 Pulse 102 H 03/15/20 12:01 Resp 18 03/15/20 12:01 BP 158/83 03/15/20 12:01 Pulse Ox 97 03/15/20 12:01 Intake & Output 03/14/20 03/15/20 03/15/20 18:59 06:59 18:59 Intake Total 360 Balance 360 Weight 63.503 kg Intake: Oral 360 Other: # Voids 3 - Exam Constitutional: Mild to moderate respiratory distress, mild accessory muscle use. Eyes:Anicteric sclerae, moist conjunctiva, no lid-lag, PERRLA, ENMT: Oropharynx clear, no erythema, exudates Neck: Supple, FROM, no masses, or JVD, No carotid bruits, No thyromegaly Lungs: Improving air exchange and less wheezing compared to prior exam. Cardiovascular: Tachycardic, regular, normal S1 and S2. No murmurs, gallops, or rubs, No peripheral edema Abdominal: Soft, Nontender, no guarding, rebound or rigidity, Normoactive bowel sounds, No hepatomegaly, No splenomegaly, No palpable mass Skin: Normal temperature, tone, texture, turgor, no induration, No subcutaneous nodules, No rash, lesions, No ulcers Extremities: No digital cyanosis, No clubbing, Pedal pulses intact and symmetrical, Radial pulses intact and symmetrical, No calf tenderness Psychiatric: Alert and oriented to person, place and time, appropriate affect, intact judgement Neuro: Muscles Strength 5/5 in all 4 extremities, Sensation to light touch grossly present throughout, Cranial nerves II-XII grossly intact, no focal sensory deficits - Labs CBC & Chem 7: 03/14/20 06:47 03/14/20 06:47 Labs: Microbiology - Last 24 Hours (Table) 03/09/20 15:24 Blood Culture - Preliminary Blood No Growth after 120 hours Assessment and Plan Plan: Acute hypoxic respiratory failure/acute exacerbation of COPD/acute covid 19 pneumonia O2 to keep sats above 92% IV steroids Tatiana's Finished remdisivir course Received 1 dose of convalescent plasma. Pro calcitonin negative Lower esophageal foreign body found on CXR Patient reported having an esophageal tear treated with clipping at [facility] about a month ago. Records obtained from [facility]--the foreign body was a metal clipping of lower esophageal bleeding according to the records. Pleuritic chest pain [place] when necessary Hypokalemia and hypomagnesemia Replaced Smoking Advised to quit Nicotine patch as needed Patient cleared today by pulmonary for discharge however patient refusing discharge, stating that she has nowhere to go as her roommates are refusing to let her come back home. Consult with care management in a.m. Disposition: Likely home Anticipated discharge: Tomorrow
[2020-03-16] MEDS: HYDROcodone/APAP 5-325MG 1 EACH TAB PO PRN ×4 (03:33→19:57)
[2020-03-16] MEDS: ZINC SULFATE 220 MG CAP PO SCH (07:51)
[2020-03-16] MEDS: predniSONE 10 MG TAB PO SCH (07:51)
[2020-03-16] MEDS: ASCORBIC ACID 500 MG TAB PO SCH ×2 (07:52→19:57)
[2020-03-16] MEDS: CHOLECALCIFEROL 400 UNIT TAB PO SCH (07:52)
[2020-03-16] MEDS: ENOXAPARIN 40 MG/0.4 ML SYRINGE SQ SCH (07:52)
[2020-03-16] MEDS: ALBUTEROL HFA INHALER INHALATION SCH ×4 (08:42→21:11)
[2020-03-16] MEDS: TIOTROPIUM 2.5 MCG INHALER INHALATION SCH (08:42)
--- NOTE | 2020-03-16 13:07 | P.DS ---
Providers Date of admission: 03/09/20 17:04 Expected date of discharge: 03/16/20 Attending physician: Akanksha Schroeder DO Consults: 03/10/20 08:47 Consult Physician Routine Consulting Provider: Janel Germain Consult Reason/Comments: copd with covid Do you want consulting provider notified?: Yes Primary care physician: Stated None Hospital Course: Discharge Diagnosis: Acute hypoxic respiratory failure/acute exacerbation of COPD/acute covid 19 pneumonia Covid 19 Virus infection COPD, stable Hypertension, stable Lower esophageal foreign body found on CXR, per records at [facility] this was a metal clipping of lower esophageal bleeding. Pleuritic chest pain, resolved Hypokalemia, resolved Hypomagnesemia, resolved Nicotine dependence on cigarettes. Hospital Course: Patient is a 65-year-old female with a past medical history of hypertension and COPD presented to [facility] on 03/09/20 with a chief complaint of shortness of breath. Patient reported she was having worsening shortness of breath, productive cough of brown phlegm, pleuritic chest pain and upper back pain. Patient was found at that time to be tachycardic, tachypneic, and hypoxic. She was diagnosed with Covid 19 virus infection and Covid 19 pneumonia. Patient was treated with steroids and oxygenation which was titrated as needed to maintain SpO2 equal to or greater than 92% and is being discharged home on room air with O2 sats maintaining at 98% at rest and upon ambulation in the room. Labs: Blood culture no growth after 144 hours. Covid 19 PCR positive on 03/09/20. CBC and BMP revealed no significant abnormalities. Patient did have an elevated d-dimer and a CTA was completed. CTA completed 03/10/19 revealed no evidence of pulmonary embolism with mild peripheral patchy pulmonary interstitial infiltrates. No suspicious pulmonary mass. Mild atelectasis at the lung bases. Chest x-ray completed 03/14/20 revealing mild prominence of the interstitium at the lung bases could be the basis of mild interstitial pneumonitis with patchy infiltrate. Patient seen and examined this morning at bedside. She reports that she does feel slightly short of breath, but is feeling better and is now breathing well on room air. Pt reports she does continue to have a cough, but is no longer productive. She denies having any chest pain or palpitations and denies any headache, lightheadedness, dizziness, abdominal pain, nausea, vomiting, or swelling/pain/tenderness in extremities. Patient being discharged home and educated on discharge instructions, mainataining social distancing and self quarantining and on new prescriptions Spiriva 2 puffs daily and Decadron 6 mg daily for the next 3 days. 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 Had a lengthy conversation regarding smoking cessation and risks of continued use up to and including . Vital signs reviewed and stable. General: non toxic, no distress, appears at stated age Derm: warm, dry Head: atraumatic, normocephalic, symmetric Eyes: EOMI, no lid lag, anicteric sclera Mouth: no lip lesion, mucus membranes moist Cardiovascular: S1S2 reg, no murmur, positive posterior tibial pulses bilaterally, cap refill < 2 seconds Lungs: CTA bilateral, no rhonchi, no rales , no accessory muscle use Abdominal: soft, nontender to palpation, no guarding, no appreciable organomegaly Ext: no gross muscle atrophy, no edema, no contractures Neuro: CN II-XI grossly intact, no focal neuro deficits Psych: Alert, oriented, appropriate affect A total of 35 minutes of time were spent preparing this complex discharge summary . Patient Condition at Discharge: Fair Plan - Discharge Summary Discharge Rx Participant: No New Discharge Prescriptions: New Tiotropium 2.5 Mcg/Puff [Spiriva Respimat 2.5 Mcg] 2 puff INHALATION DAILY 30 Days #1 diskus Dexamethasone [Decadron] 6 mg PO DAILY 3 Days #3 tablet Continue Metoprolol Tartrate [Lopressor] 50 mg PO BID Albuterol Sulfate [Proair Hfa] 1 - 2 puff INHALATION RT-Q4H PRN PRN Reason: Shortness Of Breath Celexa (Unknown Strength) 1 tab PO DAILY Discharge Medication List Albuterol Sulfate [Proair Hfa] 1 - 2 puff INHALATION RT-Q4H PRN 03/09/20 [History] Celexa (Unknown Strength) 1 tab PO DAILY 03/09/20 [History] Metoprolol Tartrate [Lopressor] 50 mg PO BID 03/09/20 [History] Dexamethasone [Decadron] 6 mg PO DAILY 3 Days #3 tablet 03/16/20 [Rx] Tiotropium 2.5 Mcg/Puff [Spiriva Respimat 2.5 Mcg] 2 puff INHALATION DAILY 30 Days #1 diskus 03/16/20 [Rx] Follow up Appointment(s)/Referral(s): Janel Germain MD [STAFF PHYSICIAN] - 1 Week Jojo Shukla MD [STAFF PHYSICIAN] - 1-2 Days None,Stated [Primary Care Provider] - Patient Instructions/Handouts: Dexamethasone (By mouth), Tiotropium (By breathing), COPD (Chronic Obstructive Pulmonary Disease) (DC) Activity/Diet/Wound Care/Special Instructions: Activity: As tolerated Diet: Heart healthy diet Special Instructions: Stop smoking, continued smoking may lead to worsening health conditions up to and including . Continue with incentive spirometry 10-15 times daily Follow up with PCP in 1-2 days and Pumonology next week. Continue social isolation with self quarantine for 3 more days. Discharge Disposition: HOME SELF-CARE
[2020-03-16] MEDS: ALPRAZolam 0.25 MG TAB PO PRN (14:01)
[2020-03-16] MEDS ORDERED: hydrOXYzine HCL 25 MG TAB PO STA (16:40)
--- NOTE | 2020-03-16 17:26 | PN ---
PROGRESS NOTE This is a 65-year-old female with a history of acute hypoxemic respiratory failure secondary to acute COVID-19 infection. Currently the patient is doing much better. Her oxygenation has improved. She is on room air. Saturations are in the low 90s. The patient was given remdesivir. It was started on March 10. She received one unit of convalescent plasma on March 11. She is being considered for possible discharge. She has a history of underlying COPD, chronic and ongoing history of nicotine dependence, electrolyte disturbance, hypertension, lower esophageal foreign body seen on chest x-ray, chronic back pain, depression, and the patient is homeless. From the pulmonary standpoint, the patient could be considered for possible discharge. She has no particular complaints today. She is on room air. PHYSICAL EXAMINATION: VITAL SIGNS: Vital signs are reviewed. They include a room-air saturation of 95%, blood pressure 150/83, mean 105, heart rate 83, respiratory rate 12, temperature 98.2. GENERAL APPEARANCE: She appears in no acute distress. HEENT: Examination is grossly unremarkable. NECK: Supple. Full range of motion. No adenopathy. Neck veins are flat. CARDIOVASCULAR: Examination reveals regular rhythm and rate. S1, S2 normal. No S3, S4 or murmur. LUNGS: Lungs reveal relatively clear breath sounds. Maybe a few scattered rhonchi. No wheezes or crackles. ABDOMEN: Soft. Bowel sounds are heard. EXTREMITIES: Intact. No cyanosis, clubbing or edema. SKIN: Without rash. NEUROLOGIC: Neurologic examination is brief but nonfocal. LABS: No new labs. Microbiology is all negative. No new x-rays. MEDICATIONS: Reviewed. ASSESSMENT: 1. Acute hypoxemic respiratory failure secondary to COVID-19 pneumonitis/pneumonia. 2. Status post 5 doses of remdesivir and one unit convalescent plasma. 3. History of chronic obstructive pulmonary disease, stable, not oxygen-dependent. 4. Chronic and ongoing history of nicotine dependence. 5. Hypokalemia and hypomagnesemia, both resolved. 6. Hypertension. 7. Lower esophageal foreign body seen on chest x-ray, status post esophageal tear with subsequent placement of a clip. 8. Chronic back pain, status post surgery. 9. Depression. 10.Homeless. PLAN: Currently the patient is doing well. She could be considered for discharge. No additional recommendations are made. Her current medications include albuterol inhaler, Xanax, vitamin C, vitamin D3, Lovenox, Merna, Narcan, prednisone, Spiriva and zinc. MMODL / IJN: [id number] /
[2020-03-17] MEDS: ENOXAPARIN 40 MG/0.4 ML SYRINGE SQ SCH (07:53)
[2020-03-17] MEDS: predniSONE 10 MG TAB PO SCH (07:53)
[2020-03-17] MEDS: ZINC SULFATE 220 MG CAP PO SCH (07:53)
[2020-03-17] MEDS: CHOLECALCIFEROL 400 UNIT TAB PO SCH (07:53)
[2020-03-17] MEDS: ASCORBIC ACID 500 MG TAB PO SCH (07:53)
[2020-03-17] MEDS: ALBUTEROL HFA INHALER INHALATION SCH ×2 (08:16→11:45)
[2020-03-17] MEDS: TIOTROPIUM 2.5 MCG INHALER INHALATION SCH (08:16)
[2020-03-17 10:45] VITALS: BP 151/80; RESP 16; TEMP 97.7
--- NOTE | 2020-03-17 11:15 | P.DS ---
Providers Date of admission: 03/09/20 17:04 Expected date of discharge: 03/17/20 Attending physician: Akanksha Schroeder DO Consults: 03/10/20 08:47 Consult Physician Routine Consulting Provider: Janel Germain Consult Reason/Comments: copd with covid Do you want consulting provider notified?: Yes Primary care physician: Stated None Hospital Course: Hospital Course: Patient is a 65-year-old female with a past medical history significant for COPD presented to [facility] on 03/09/20 with a chief complaint of shortness of breath. She was admitted for acute hypoxic respiratory failure secondary to COPD exacerbation and Covid Pneumonia. She was positive for COVID 19 virus per PCR on 03/09/20 and was also found to have an elevated d-dimer in which CT PE was obtained revealing no evidence of pulmonary emboli. CXR did reveal mild prominence of the interstitium at the lung bases could be the basis of mild interstitial pneumonitis with patchy infiltrate. Patient was admitted and treated with steroids and oxygenation which was titrated as needed and was eventually weaned off of oxygen with much improvement. Ms. Francis is being discharged home to [facility] on room air with O2 with oxygen sats maintaining at 98% at rest and upon ambulation in the room. * Acute hypoxic respiratory failure/acute exacerbation of COPD/acute covid 19 pneumonia * Continue decadron 6 mg for three more days. start using spiriva 2 puffs twice daily. * Follow up with PCP in 1-2 days and Pulmonology in 1 week. * Stop smoking. * Self-quarantine for 3 more days and continue to maintain social distancing thereafter. * COPD, stable * stop smoking, begin using spiriva twice daily and follow up with fisheries technician next week. * Lower esophageal foreign body found on CXR, per records at [facility] this was a metal clipping of lower esophageal bleeding. * Pleuritic chest pain, resolved * Hypokalemia, resolved * Hypomagnesemia, resolved * Nicotine dependence on cigarettes. * instructed to stop smoking. * Hypertension, stable Laboratory/Imaging results: Labs: Blood culture no growth after 144 hours. Covid 19 PCR positive on 03/09/20. CBC and BMP revealed no significant abnormalities. Patient did have an elevated d-dimer and a CTA was completed. CTA completed 03/10/19 revealed no evidence of pulmonary embolism with mild peripheral patchy pulmonary interstitial infiltrates. No suspicious pulmonary mass. Mild atelectasis at the lung bases. Chest x-ray completed 03/14/20 revealing mild prominence of the interstitium at the lung bases could be the basis of mild interstitial pneumonitis with patchy infiltrate. Physical examination: Vital signs reviewed and stable. Pt seen and examined at the bedside this morning. She reports continued shortness of breath only with exertion but reports improvement with rest and appears to be doing well at rest, She states her cough has improved and denies having any headache, lightheadedness, dizziness, chest pain or palpitations and states that she has been eating well. Pt instructed on incentive spirometry use and continued use upon discharge. She was further educated on discharge instructions, maintaining social distancing and self quarantining for 3 more days. She was updated on being started on new prescriptions Spiriva 2 puffs daily and Decadron 6 mg daily for the next 3 days. Patient instructed to follow-up with PCP in 1-2 days and fisheries technician next week. Had a lengthy conversation regarding smoking cessation and risks of continued use up to and including . General: non toxic, no distress, appears at stated age Derm: warm, dry Head: atraumatic, normocephalic, symmetric Eyes: EOMI, no lid lag, anicteric sclera Mouth: no lip lesion, mucus membranes moist Cardiovascular: S1S2 reg, no murmur, positive posterior tibial pulses bilaterally, cap refill < 2 seconds Lungs: CTA bilateral, no rhonchi, no rales , no accessory muscle use Abdominal: soft, nontender to palpation, no guarding, no appreciable organomegaly Ext: no gross muscle atrophy, no edema, no contractures Neuro: CN II-XI grossly intact, no focal neuro deficits Psych: Alert, oriented, appropriate affect A total of 35 minutes of time were spent preparing this complex discharge summary . Patient Condition at Discharge: Fair Plan - Discharge Summary Discharge Rx Participant: No New Discharge Prescriptions: New Tiotropium 2.5 Mcg/Puff [Spiriva Respimat 2.5 Mcg] 2 puff INHALATION DAILY 30 Days #1 diskus Dexamethasone [Decadron] 6 mg PO DAILY 3 Days #3 tablet Continue Metoprolol Tartrate [Lopressor] 50 mg PO BID Albuterol Sulfate [Proair Hfa] 1 - 2 puff INHALATION RT-Q4H PRN PRN Reason: Shortness Of Breath Celexa (Unknown Strength) 1 tab PO DAILY Discharge Medication List Albuterol Sulfate [Proair Hfa] 1 - 2 puff INHALATION RT-Q4H PRN 03/09/20 [History] Celexa (Unknown Strength) 1 tab PO DAILY 03/09/20 [History] Metoprolol Tartrate [Lopressor] 50 mg PO BID 03/09/20 [History] Dexamethasone [Decadron] 6 mg PO DAILY 3 Days #3 tablet 03/16/20 [Rx] Tiotropium 2.5 Mcg/Puff [Spiriva Respimat 2.5 Mcg] 2 puff INHALATION DAILY 30 Days #1 diskus 03/16/20 [Rx] Follow up Appointment(s)/Referral(s): Janel Geramin MD [STAFF PHYSICIAN] - 04/10/20 10:15 am Jojo Shukla MD [STAFF PHYSICIAN] - 1-2 Days (Patient to call and make a new patient appointment at her convenience.) None,Stated [Primary Care Provider] - Patient Instructions/Handouts: Dexamethasone (By mouth), Tiotropium (By breathing), COPD (Chronic Obstructive Pulmonary Disease) (DC) Activity/Diet/Wound Care/Special Instructions: Activity: As tolerated Diet: Heart healthy diet Special Instructions: Stop smoking, continued smoking may lead to worsening health conditions up to and including . Continue with incentive spirometry 10-15 times daily Follow up with PCP in 1-2 days and Pumonology next week. Continue social isolation with self quarantine for 3 more days. Discharge Disposition: HOME SELF-CARE
[2020-03-17 11:29] VITALS: PULSE 90
--- NOTE | 2020-03-17 12:36 | P.PN ---
Subjective Progress Note Date: 03/17/20 Principal diagnosis: COVID 19 pneumonia 65-year-old female admitted on 03/09/2020. She was admitted with acute hypoxemic respiratory failure secondary to COVID 19 pneumonia. Currently, the patient is doing much better. She is hoping to be discharged soon. She is currently on room air. Saturations are in the low 90s. In addition, the patient has a history of COPD, chronic and ongoing nicotine dependence, electrolyte disturbance including hypokalemia and hypomagnesemia, essential hypertension, chronic back pain, depression, and the patient is homeless. Currently, the patient is on albuterol inhaler, vitamin C, vitamin D3, zinc, as well as prednisone. Objective - Vital Signs Vital signs: Vital Signs Temp 97.7 F 03/17/20 10:17 Pulse 90 03/17/20 11:28 Resp 16 03/17/20 10:17 BP 151/80 03/17/20 10:17 Pulse Ox 94 L 03/17/20 11:28 Intake & Output 03/16/20 03/17/20 03/17/20 18:59 06:59 18:59 Other: # Voids 3 1 # Bowel Movements 0 - Exam No acute distress, oriented 3. No supplemental oxygen. HEENT examination is grossly unremarkable. Mucous membranes are moist. No oral lesions. Neck supple. Full range of motion. No adenopathy thyromegaly or neck vein distention. Cardiovascular examination reveals regular rhythm rate. S1-S2 normal. No S3 or S4. No discernible murmur noted. Lungs reveal mostly clear breath sounds. A few scattered rhonchi. No wheezes or crackles. Breath sounds equal bilaterally.. Abdomen soft bowel sounds are heard. No masses or tenderness. Extremities are intact. No cyanosis clubbing or edema. Skin is without rash or lesion. Neurologic examination is brief but nonfocal. - Labs CBC & Chem 7: 03/14/20 06:47 03/14/20 06:47 Assessment and Plan Assessment: Acute hypoxemic respiratory failure, secondary to COVID 19 pneumonia. History of chronic obstructive pulmonary disease, stable, not oxygen dependent. Hypokalemia and hypomagnesemia, corrected. History of essential hypertension. Previous history of esophageal tear, with repair. Chronic and ongoing nicotine dependence. History of chronic back pain, status post surgery. History of depression. Plan: Plan dated 03/17/2020. The patient is much improved. We'll continue to follow. No additional recommendations are made. The patient might be considered for discharge soon. From the pulmonary status, the patient is not requiring any supplemental oxygen. The patient is currently on vitamin C, vitamin D3, and zinc. In addition, the patient is on prednisone. The patient is also on albuterol and Spiriva inhalers. Time with Patient: Less than 30
[2020-03-17] MEDS: HYDROcodone/APAP 5-325MG 1 EACH TAB PO PRN (13:58)
== END 2020-03-17 15:37 | disposition home or self-care (01) | DRG 177 ==
LOC: EC 14:19 → 5NMEDONC 17:04 → 4SSUR 23:17 → 6NMEDSUR 03-10 11:56
PROVIDERS: ADMIT Internal Medicine; ATTEND Internal Medicine
DX: U07.1 COVID-19 (principal); J12.82 Pneumonia due to coronavirus disease 2019; J96.01 Acute respiratory failure with hypoxia; J44.0 Chronic obstructive pulmonary disease with (acute) lower respiratory infection; J44.1 Chronic obstructive pulmonary disease with (acute) exacerbation; G89.29 Other chronic pain; Z87.19 Personal history of other diseases of the digestive system; Z71.6 Tobacco abuse counseling; F17.210 Nicotine dependence, cigarettes, uncomplicated; E83.42 Hypomagnesemia; E87.6 Hypokalemia; F32.9 Major depressive disorder, single episode, unspecified; I10 Essential (primary) hypertension; Z59.0 Homelessness; Z79.899 Other long term (current) drug therapy; R79.1 Abnormal coagulation profile; Z88.2 Allergy status to sulfonamides; Z88.8 Allergy status to other drugs, medicaments and biological substances; M54.9 Dorsalgia, unspecified; J84.10 Pulmonary fibrosis, unspecified
CPT/HCPCS: 36415; 71045; 71046; 71275; 80053; 83605; 83735; 84145; 84484; 85025; 85027; 85379; 85610; 85730; 86850; 86900; 86901; 87040; 87635; 93005; 94640; 94760; 96365; 96375; 96376; 99291